=== PATIENT | male | born 1955 | race Caucasian/White ===

== ENCOUNTER 2016-04-29 11:11 | Inpatient (IN) | payer BC ==
[2016-04-29] MEDS ORDERED: NORMAL SALINE 1000 ML 1,000 ML IV ONE ×3 (11:32→15:02)
--- NOTE | 2016-04-29 11:32 | ER Document Report ---
[id number] 4d Medic Information source: Patient TRAVEL OUTSIDE OF THE [place] IN LAST 30 DAYS: No - HPI Patient complains to provider of: Cough, Short of breath Onset: Last week Duration: Worse/persistent Short of Breath: Moderate Cough: Productive Sputum color: Brown, Yellow Associated symptoms: None <HEBER CASILLAS - Last Filed: 05/05/16 14:13> - General Stated Complaint: BODY PAIN Notes: Patient is a 60-year-old male that presents to the emergency department today with complaints of shortness of breath with a cough of one week duration. EMS reports the patient's room air oxygen saturation was 78% on arrival. Patient states she has been having yellowish brown sputum with his cough. Patient does smoke 1 pack per day. Of note, at bedside the patient has a prescription bottle for 10 mg oxycodone #120 which was filled on 04/16/16 (approximately two weeks ago) which is empty. Patient is on pain management for chronic back pain. (HEBER CASILLAS) - Related Data Allergies/Adverse Reactions: No Known Allergies Allergy (Unverified 09/14/10 11:07) Home Medications: Current Home Medications Amlodipine Besylate/Benazepril [Amlodipine-Benazepril 5-40 mg] 1 cap PO DAILY [History] Ibuprofen [Motrin 800 mg Tablet] 800 mg PO TID 04/29/16 [History] Oxycodone HCl 10 mg PO Q6HP PRN 04/29/16 [History] Oxycodone HCl [Oxycontin] 20 mg PO Q12 04/29/16 [History] Pregabalin [Lyrica] 300 mg PO BID 04/29/16 [History] Past Medical History - General Information source: [facility] Records - Social History Smoking Status: Current Every Day Smoker Lives with: Family Family History: Reviewed & Not Pertinent Musculoskeltal Medical History: Reports Other - chronic back pain Surgical Hx: Negative <HEBER CASILLAS - Last Filed: 05/05/16 14:13> Review of Systems - Review of Systems Constitutional: No symptoms reported EENT: No symptoms reported Cardiovascular: No symptoms reported Respiratory: See HPI, Cough, Short of breath Gastrointestinal: No symptoms reported Genitourinary: No symptoms reported Male Genitourinary: No symptoms reported Musculoskeletal: No symptoms reported Skin: No symptoms reported Hematologic/Lymphatic: No symptoms reported Neurological/Psychological: No symptoms reported -: Yes All other systems reviewed and negative <HEBER CASILLAS - Last Filed: 05/05/16 14:13> Physical Exam - General General appearance: Alert In distress: Mild - respiratory distress - HEENT Head: Normocephalic, Atraumatic Eyes: Normal Extraocular movements intact: Yes - Respiratory Respiratory status: Respiratory distress - mild, Tachypnea Breath sounds: Rhonchi, Wheezing - Cardiovascular Rhythm: Regular Heart sounds: Normal auscultation Murmur: No - Abdominal Distension: Distended Tenderness: Nontender - Extremities General upper extremity: Normal inspection, Nontender. No: Edema General lower extremity: Normal inspection, Nontender. No: Edema - Neurological Neuro grossly intact: Yes Cognition: Normal Orientation: AAOx4 Speech: Normal Sensory: Normal - Psychological Associated symptoms: Normal affect, Normal mood - Skin Skin Temperature: Warm - quite warm to the touch Skin Moisture: Dry Skin Color: Normal <HEBER CASILLAS - Last Filed: 05/05/16 14:13> - Vital signs Vitals: Resp Pulse Ox 25 H 85 L 04/29/16 11:33 04/29/16 11:33 (MAIRA BOTELLO) Course - Laboratory Result Diagrams: 04/29/16 11:30 04/29/16 11:30 - Diagnostic Test Radiology reviewed: Image reviewed, Reports reviewed - Chest x-ray is read as pulmonary vascular congestion with developing left basilar infiltrate - EKG Interpretation by [place] EKG shows normal: Sinus rhythm, Intervals, QRS Complexes, ST-T Waves. abnormal : [place] Rate: Normal - 99 Rhythm: NSR [place]/QRS: Right axis deviation Voltage: Decreased voltage When compared to previous EKG there are: No significant change - Consults Dr. Mcclendon Time consulted: 13:50 Consulted provider: will come to ER <MAIRA BOTELLO - Last Filed: 04/29/16 14:04> - Laboratory Result Diagrams: 05/03/16 04:50 05/03/16 04:50 <HEBER CASILLAS - Last Filed: 05/05/16 14:13> - Re-evaluation Re-evalutation: 04/29/16 13:49 The patient's empty bottle of oxycodone filled under 2 weeks ago, along with his mental status, severe dehydration with renal failure and rhabdomyolysis all suggests the patient has been daily overdosing on his narcotics. 04/29/16 14:04 The patient was given 2 L of normal saline IV bolus. Further fluids are being held at this time until the BNP comes back. The radiologist read the chest x- ray is pulmonary vascular congestion, however this is unlikely given his labs suggesting severe dehydration. Fluids will be restarted when the BNP comes back if it does not suggest heart failure. The systolic blood pressure is about 105 at this time. (MAIRA BOTELLO) - Vital Signs Vital signs: Temp Pulse Resp BP Pulse Ox 97.8 F 77 16 123/65 90 L 05/03/16 11:32 05/03/16 11:32 05/03/16 11:32 05/03/16 11:32 05/03/16 11:32 (MAIRA BOTELLO) - Laboratory Laboratory results interpreted by me: 04/29/16 04/29/16 04/29/16 11:30 11:30 11:30 WBC 14.8 H Lymphocytes % 11.6 L Absolute Neutrophils 11.2 H Absolute Monocytes 1.9 H VBG pH VBG HCO3 Carbon Dioxide 21 L BUN 100 H Creatinine 3.71 H Est GFR ( Amer) 20 L Est GFR (Non-Af Amer) 17 L Glucose 177 H POC Glucose Lactic Acid 2.2 H AST 152 H ALT 79 H Alkaline Phosphatase 135 H Creatine Kinase 6460 H CK-MB (CK-2) 04/29/16 04/29/16 04/29/16 11:30 11:30 11:44 WBC Lymphocytes % Absolute Neutrophils Absolute Monocytes VBG pH 7.17 L* VBG HCO3 19.7 L Carbon Dioxide BUN Creatinine Est GFR ( Amer) Est GFR (Non-Af Amer) Glucose POC Glucose 178 H Lactic Acid AST ALT Alkaline Phosphatase Creatine Kinase CK-MB (CK-2) 33.30 H Critical Care Note - Critical Care Note Total time excluding time spent on procedures (mins): 35 <MAIRA BOTELLO - Last Filed: 04/29/16 14:04> Discharge - Discharge Admitting Provider: Hospitalist Unit Admitted: IMCU <MAIRA BOTELLO - Last Filed: 04/29/16 14:04> <HEBER CASILLAS - Last Filed: 05/05/16 14:13> - Discharge Clinical Impression: Dehydration, COPD with acute exacerbation, Prescription drug abuse Pneumonia Qualifiers: Pneumonia type: due to unspecified organism Laterality: left Lung location: lower lobe of lung Qualified Code(s): J18.1 - Lobar pneumonia, unspecified organism Acute renal failure Qualifiers: Acute renal failure type: unspecified Qualified Code(s): N17.9 - Acute kidney failure, unspecified Rhabdomyolysis Qualifiers: Rhabdomyolysis type: non-traumatic Qualified Code(s): M62.82 - Rhabdomyolysis Condition: Fair Disposition: ADMITTED INPATIENT Scribe Attestation: 04/29/16 13:54 I personally performed the services described in the documentation, reviewed and edited the documentation which was dictated to the scribe in my presence, and it accurately records my words and actions. (MAIRA BOTELLO) Scribe Documentation - Scribe acting as scribe for :: [place] <HEBER CASILLAS - Last Filed: 05/05/16 14:13>
[2016-04-29] MEDS ORDERED: IPRATROPIUM/ALBUTEROL 0.5-2.5 MG/3 ML AMPUL NEB ONE (11:33)
[2016-04-29 11:56] LABS: PROTHROMBIN TIME 14.3 SEC (11.4-15.4)
[2016-04-29 11:57] LABS: ABSOLUTE LYMPHOCYTES (AUTO) 1.7 10^3/uL (0.5-4.7); ABSOLUTE MONOCYTES (AUTO) 1.9 10^3/uL (0.1-1.4); ABSOLUTE NEUT (AUTO) 11.2 10^3/uL (1.7-8.2); BASOPHILS % (AUTO) 0.3 % (0-2); HEMATOCRIT 42.6 % (37.9-51.0); HEMOGLOBIN 14.3 g/dL (13.5-17.0); HGB HCT DIFFERENCE 0.3; LYMPHOCYTES % (AUTO) 11.6 % (13-45); MEAN CORPUSCULAR HEMOGLOBIN 30.8 pg (27.0-33.4); MEAN CORPUSCULAR HGB CONC 33.5 g/dL (32.0-36.0); MEAN CORPUSCULAR VOLUME 92 fl (80-97); MONOCYTES % (AUTO) 12.6 % (3-13); RED BLOOD COUNT 4.62 10^6/uL (4.35-5.55); RED CELL DISTRIBUTION WIDTH 13.6 % (11.5-14.0); SEGMENTED NEUTROPHILS % (AUTO) 75.5 % (42-78); WHITE BLOOD COUNT 14.8 10^3/uL (4.0-10.5)
[2016-04-29 12:01] LABS: VENOUS BLOOD BASE EXCESS -9.2 mmol/L; VENOUS BLOOD HCO3 19.7 mmol/L (20-32)
[2016-04-29 12:10] LABS: ALANINE AMINOTRANSFERASE 79 U/L (21-72); ALBUMIN 3.5 g/dL (3.5-5.0); ALKALINE PHOSPHATASE 135 U/L (38-126); ANION GAP 18 (5-19); ASPARTATE AMINO TRANSFERASE 152 U/L (17-59); BILIRUBIN,TOTAL 1.2 mg/dL (0.2-1.3); BLOOD UREA NITROGEN 100 mg/dL (7-20); CALCIUM 8.8 mg/dL (8.4-10.2); CARBON DIOXIDE 21 mmol/L (22-30); CHLORIDE 103 mmol/L (98-107); CREATININE RESULT 3.71 mg/dL (0.52-1.25); GLUCOSE 177 mg/dL (75-110); POTASSIUM 4.8 mmol/L (3.6-5.0); TOTAL PROTEIN 6.3 g/dL (6.3-8.2)
[2016-04-29 12:21] LABS: TROPONIN I < 0.012 ng/mL
[2016-04-29 12:23] LABS: VENOUS BLOOD PH 7.17 (7.30-7.42)
[2016-04-29] MEDS ORDERED: CEFTRIAXONE 1 GM/D5W RTU 50 ML IV ONE (12:26)
[2016-04-29 12:29] LABS: CREATINE KINASE 6460 U/L (55-170)
[2016-04-29] MEDS ORDERED: ALBUTEROL SULFATE 0.083% NEB 2.5 MG/3 ML AMPUL NEB ONE (13:26)
[2016-04-29] MEDS ORDERED: LORAZEPAM INJ 2 MG/1 ML VIAL IV PRN (14:46)
[2016-04-29] MEDS ORDERED: ALBUTEROL SULFATE 0.083% NEB 2.5 MG/3 ML AMPUL NEB PRN (15:07)
[2016-04-29] MEDS ORDERED: ACETAMINOPHEN 325 MG TABLET PO PRN (15:23)
[2016-04-29] MEDS: MORPHINE SULFATE 10 MG/ML INJ IV PRN (15:39)
--- NOTE | 2016-04-29 15:44 | PDOC H&P ---
History of Present Illness Patient complains of: Cough History of Present Illness: ANGELA ESCAMILLA is a 60 year old male presents to the emergency department couple day by his fiance with 4 days of cough, shortness of breath, confusion. Patient was found by EMS to have O2 sat of 70% on room air. In the emergency department he is noted to have bilateral pneumonia, COPD exacerbation, rhabdomyolysis, dehydration. He is a current smoker. Past Medical History Cardiac Medical History: Reports: Hyperlipidema Past Surgical History Past Surgical History: Reports: Orthopedic Surgery - Back/neck Social History Information Source: Patient Lives with: Spouse/Significant other Smoking Status: Current Every Day Smoker Frequency of Alcohol Use: Heavy Hx Recreational Drug Use: No Hx Prescription Drug Abuse: No - Advance Directive Resuscitation Status: Full Code Family History Family History: DM Parental Family History Reviewed: Yes Children Family History Reviewed: Yes Sibling(s) Family History Reviewed.: Yes Medication/Allergy Home Medications: Amlodipine Besylate/Benazepril [Amlodipine-Benazepril 5-40 mg] 1 cap PO DAILY Ibuprofen [Motrin 800 mg Tablet] 800 mg PO TID 04/29/16 Oxycodone HCl 10 mg PO Q6HP PRN 04/29/16 Oxycodone HCl [Oxycontin] 20 mg PO Q12 04/29/16 Pregabalin [Lyrica] 300 mg PO BID 04/29/16 Allergies/Adverse Reactions: No Known Allergies Allergy (Unverified 09/14/10 11:07) Review of Systems Constitutional: ABSENT: chills, fever(s), headache(s), weight gain, weight loss Eyes: ABSENT: visual disturbances Ears: ABSENT: hearing changes Cardiovascular: ABSENT: chest pain, dyspnea on exertion, edema, orthropnea, palpitations Respiratory: PRESENT: cough, dyspnea, sputum. ABSENT: hemoptysis Gastrointestinal: ABSENT: abdominal pain, constipation, diarrhea, hematemesis, hematochezia, nausea, vomiting Genitourinary: ABSENT: dysuria, hematuria Musculoskeletal: ABSENT: joint swelling Integumentary: ABSENT: rash, wounds Neurological: PRESENT: confusion. ABSENT: abnormal gait, abnormal speech, dizziness, focal weakness, syncope Psychiatric: ABSENT: anxiety, depression, homidical ideation, suicidal ideation Endocrine: ABSENT: cold intolerance, heat intolerance, polydipsia, polyuria Hematologic/Lymphatic: ABSENT: easy bleeding, easy bruising Physical Exam Vital Signs: Temp Pulse Resp BP Pulse Ox 98.6 F 20 108/53 L 91 L 04/29/16 14:13 04/29/16 14:00 04/29/16 14:00 04/29/16 14:00 PHYSICAL EXAM: GENERAL: Appears well, no acute distress, slightly agitated HEENT: Normocephalic, no scleral icterus, conjunctiva clear, EOEM intact, PERRLA , moist mucous membranes NECK: trachea midline, no thyromegally RESPIRATORY: Bilateral rhonchi and wheezes CARDIAC: Regular rate and rhythm, no murmur/pilar/rub ABDOMEN: Soft, no distension, no tenderness, no guarding, normal bowel sounds, negative Pereira sign RECTAL: deferred : deferred EXTREMITIES: No edema, cyanosis, clubbing MUSCULOSKELETAL: No joint swelling or deformity VASCULAR: normal peripheral pulses NEUROLOGIC: Alert, oriented to person only, normal speech, cranial nerves grossly intact, 5/5 strength in all extremities, tactile sensation intact in all extremities SKIN: No rash, no wounds, no worrisome skin lesions PSYCHIATRIC: Unusual affect Results Laboratory Results: 04/29/16 11:30 04/29/16 11:30 04/29/16 04/29/16 04/29/16 11:30 11:30 11:30 WBC 14.8 H RBC 4.62 Hgb 14.3 Hct 42.6 MCV 92 MCH 30.8 MCHC 33.5 RDW 13.6 Plt Count 236 Seg Neutrophils % 75.5 Lymphocytes % 11.6 L Monocytes % 12.6 Eosinophils % 0.0 Basophils % 0.3 Absolute Neutrophils 11.2 H Absolute Lymphocytes 1.7 Absolute Monocytes 1.9 H Absolute Eosinophils 0.0 Absolute Basophils 0.0 VBG pH VBG pCO2 VBG HCO3 VBG Base Excess Sodium 142.0 Potassium 4.8 Chloride 103 Carbon Dioxide 21 L Anion Gap 18 BUN 100 H Creatinine 3.71 H Est GFR ( Amer) 20 L Est GFR (Non-Af Amer) 17 L Glucose 177 H Lactic Acid 2.2 H Calcium 8.8 Total Bilirubin 1.2 AST 152 H ALT 79 H Alkaline Phosphatase 135 H Total Protein 6.3 Albumin 3.5 04/29/16 11:30 WBC RBC Hgb Hct MCV MCH MCHC RDW Plt Count Seg Neutrophils % Lymphocytes % Monocytes % Eosinophils % Basophils % Absolute Neutrophils Absolute Lymphocytes Absolute Monocytes Absolute Eosinophils Absolute Basophils VBG pH 7.17 L* VBG pCO2 55.0 VBG HCO3 19.7 L VBG Base Excess -9.2 Sodium Potassium Chloride Carbon Dioxide Anion Gap BUN Creatinine Est GFR ( Amer) Est GFR (Non-Af Amer) Glucose Lactic Acid Calcium Total Bilirubin AST ALT Alkaline Phosphatase Total Protein Albumin 04/29/16 04/29/16 04/29/16 11:30 11:30 11:30 Creatine Kinase 6460 H CK-MB (CK-2) 33.30 H Troponin I < 0.012 NT-Pro-B Natriuret Pep 232 Impressions: Chest X-Ray 04/29/16 12:02 IMPRESSION: Pulmonary vascular congestion Question early or developing infiltrate left lower lobe, edema versus pneumonia Assessment & Plan - Diagnosis (1) Acute hypoxemic respiratory failure Is this a current diagnosis for this admission?: YesPlan: Oxygen supplementation as needed maintain O2 sat greater than 93%. (2) Sepsis Is this a current diagnosis for this admission?: YesPlan: Secondary to pneumonia. (3) Pneumonia Qualifiers: Pneumonia type: due to unspecified organism Laterality: left Lung location: lower lobe of lung Qualified Code(s): J18.1 - Lobar pneumonia, unspecified organism Is this a current diagnosis for this admission?: YesPlan: Likely bacterial. Start IV Rocephin and IV azithromycin pending blood and sputum culture. (4) Chronic pain Is this a current diagnosis for this admission?: YesPlan: Secondary to multiple cervical and lumbar spine surgeries. Chronic opiate dependent. Order when necessary IV morphine for now. (5) Acute renal failure Qualifiers: Acute renal failure type: unspecified Qualified Code(s): N17.9 - Acute kidney failure, unspecified Is this a current diagnosis for this admission?: YesPlan: Secondary to sepsis and rhabdomyolysis. Aggressive IV fluids. Monitor kidney function and CPK level. (6) COPD with acute exacerbation Is this a current diagnosis for this admission?: YesPlan: IV Solu-Medrol. Scheduled and when necessary albuterol. (7) Dehydration Is this a current diagnosis for this admission?: Yes (8) Rhabdomyolysis Qualifiers: Rhabdomyolysis type: non-traumatic Qualified Code(s): M62.82 - Rhabdomyolysis Is this a current diagnosis for this admission?: YesPlan: IV fluids. Monitor labs. - Time Time Spent: Greater than 70 Minutes
[2016-04-29] MEDS: NORMAL SALINE 1000 ML 1,000 ML IV PRN ×2 (15:46→21:17)
[2016-04-29] MEDS ORDERED: METHYLPREDNISOLONE INJ 40 MG/1 ML SDV IV ONE (16:15)
[2016-04-29 16:45] LABS: APPEARANCE,URINE SLIGHTLY-CLOUDY; BILIRUBIN,URINE NEGATIVE (NEGATIVE); GLUCOSE, URINE NEGATIVE (NEGATIVE); KETONES,URINE NEGATIVE (NEGATIVE); LEUKOCYTE ESTERASE,URINE NEGATIVE (NEGATIVE); NITRITE,URINE NEGATIVE (NEGATIVE); PROTEIN,URINE NEGATIVE (NEGATIVE); URINE SPECIFIC GRAVITY 1.013
--- NOTE | 2016-04-29 17:00 | EKG REPORT ---
SEVERITY:- OTHERWISE NORMAL ECG - SINUS RHYTHM RIGHT AXIS DEVIATION LOW VOLTAGE IN FRONTAL LEADS : Confirmed by: Scarlet Moralez MD 29-Apr-2016 16:58:07
[2016-04-29] MEDS: GUAIFENESIN 600 MG TABLET.SA PO SCH (17:29)
[2016-04-29] MEDS ORDERED: LEVOFLOXACIN 750 MG/D5W RTU 750 MG/150 ML RTUPB IV SCH ×2 (18:00→22:00)
[2016-04-29] MEDS: ALBUTEROL SULFATE 0.083% NEB 2.5 MG/3 ML AMPUL NEB SCH (20:48)
[2016-04-29] MEDS: HEPARIN SOD (PORCINE) 5,000 UNIT/ML 1 ML SYRINGE SUBCUT SCH (21:22)
[2016-04-29] MEDS: FAMOTIDINE INJ/PF 20 MG/2 ML SDV IV SCH (21:25)
[2016-04-29] MEDS: METHYLPREDNISOLONE INJ 40 MG/1 ML SDV IV SCH (21:26)
[2016-04-29] MEDS ORDERED: FAMOTIDINE INJ/PF 20 MG/2 ML SDV IV SCH (22:00)
[2016-04-30] MEDS: GUAIFENESIN 600 MG TABLET.SA PO SCH ×2 (05:20→17:16)
[2016-04-30] MEDS: METHYLPREDNISOLONE INJ 40 MG/1 ML SDV IV SCH ×3 (05:21→21:50)
[2016-04-30] MEDS: HEPARIN SOD (PORCINE) 5,000 UNIT/ML 1 ML SYRINGE SUBCUT SCH ×3 (05:21→21:51)
[2016-04-30 07:46] LABS: ANION GAP 12 (5-19); CALCIUM 8.5 mg/dL (8.4-10.2); CARBON DIOXIDE 19 mmol/L (22-30); CHLORIDE 116 mmol/L (98-107); CREATININE RESULT 1.17 mg/dL (0.52-1.25); GLUCOSE 139 mg/dL (75-110); POTASSIUM 4.8 mmol/L (3.6-5.0); SODIUM 146.8 mmol/L (137-145)
[2016-04-30 08:05] LABS: CREATINE KINASE 3134 U/L (55-170)
[2016-04-30 08:10] LABS: HEMATOCRIT 38.2 % (37.9-51.0); HEMOGLOBIN 12.5 g/dL (13.5-17.0); HGB HCT DIFFERENCE -0.7; MEAN CORPUSCULAR HEMOGLOBIN 30.4 pg (27.0-33.4); MEAN CORPUSCULAR HGB CONC 32.6 g/dL (32.0-36.0); MEAN CORPUSCULAR VOLUME 93 fl (80-97); RED BLOOD COUNT 4.09 10^6/uL (4.35-5.55); RED CELL DISTRIBUTION WIDTH 13.5 % (11.5-14.0); WHITE BLOOD COUNT 12.1 10^3/uL (4.0-10.5)
[2016-04-30] MEDS: ALBUTEROL SULFATE 0.083% NEB 2.5 MG/3 ML AMPUL NEB SCH ×3 (08:15→20:01)
[2016-04-30 08:23] LABS: BLOOD UREA NITROGEN 60 mg/dL (7-20)
[2016-04-30] MEDS ORDERED: ONDANSETRON HCL INJ/PF 4 MG/2 ML SDV IV PRN (08:44)
[2016-04-30] MEDS: FAMOTIDINE INJ/PF 20 MG/2 ML SDV IV SCH (09:12)
[2016-04-30] MEDS: CEFTRIAXONE 1 GM/D5W RTU 50 ML IV SCH (09:12)
[2016-04-30] MEDS ORDERED: NORMAL SALINE 1000 ML 1,000 ML IV PRN (10:42)
[2016-04-30] MEDS: MORPHINE SULFATE 10 MG/ML INJ IV PRN (11:02)
--- NOTE | 2016-04-30 11:02 | PDOC PROGRESS REPORT ---
Subjective Progress Note for:: 04/30/16 Subjective:: Patient is much more alert and appropriate today. He is having severe chronic back pain since his opiates were held on admission secondary to encephalopathy. He continues to have cough and shortness of breath. Patient denies fever, chills , headache, new focal weakness, chest pain, abdominal pain, nausea, vomiting, diarrhea, constipation. Physical Exam Vital Signs: Temp Pulse Resp BP Pulse Ox 97.3 F 82 18 137/84 H 92 04/30/16 07:24 04/30/16 07:24 04/30/16 07:24 04/30/16 07:24 04/30/16 07:24 Intake & Output 04/29/16 04/30/16 05/01/16 06:59 06:59 06:59 Intake Total 3500 Output Total 2500 Balance 1000 Weight 81.647 kg GENERAL: No acute distress HEENT: Conjunctiva clear, nonicteric, moist mucous membranes, no JVD, midline trachea RESPIRATORY: Bilateral rhonchi/wheezes CARDIAC: Regular rate and rhythm, no murmurs/gallops/rubs ABDOMEN: Soft, nondistended, nontender, positive bowel sounds, no rebound, no guarding EXTREMETIES: No edema, cyanosis, clubbing NEUROLOGIC: Alert, oriented to person/place/time, CN's grossly intact, no focal deficits SKIN: No rash, wounds PSYCH: Normal mood, normal affect Results Laboratory Results: 04/30/16 04:05 04/30/16 04:05 04/29/16 04/29/16 04/30/16 16:00 16:15 04:05 WBC 12.1 H RBC 4.09 L Hgb 12.5 L Hct 38.2 MCV 93 MCH 30.4 MCHC 32.6 RDW 13.5 Plt Count 202 Sodium Potassium Chloride Carbon Dioxide Anion Gap BUN Creatinine Est GFR ( Amer) Est GFR (Non-Af Amer) Glucose Lactic Acid 1.2 Calcium Urine Color YELLOW Urine Appearance SLIGHTLY-CLOUDY Urine pH 5.0 Ur Specific [place] 1.013 Urine Protein NEGATIVE Urine Glucose (UA) NEGATIVE Urine Ketones NEGATIVE Urine Blood LARGE H Urine Nitrite NEGATIVE Ur Leukocyte Esterase NEGATIVE Urine WBC (Auto) 2 Urine RBC (Auto) 0 04/30/16 04:05 WBC RBC Hgb Hct MCV MCH MCHC RDW Plt Count Sodium 146.8 H Potassium 4.8 Chloride 116 H Carbon Dioxide 19 L Anion Gap 12 BUN 60 H D Creatinine 1.17 Est GFR ( Amer) > 60 Est GFR (Non-Af Amer) > 60 Glucose 139 H Lactic Acid Calcium 8.5 Urine Color Urine Appearance Urine pH Ur Specific [place] Urine Protein Urine Glucose (UA) Urine Ketones Urine Blood Urine Nitrite Ur Leukocyte Esterase Urine WBC (Auto) Urine RBC (Auto) 04/30/16 04:05 Creatine Kinase 3134 H Impressions: Chest X-Ray 04/29/16 12:02 IMPRESSION: Pulmonary vascular congestion Question early or developing infiltrate left lower lobe, edema versus pneumonia Assessment & Plan - Diagnosis (1) Acute hypoxemic respiratory failure Is this a current diagnosis for this admission?: YesPlan: Continue oxygen supplementation. Continue to address COPD and pneumonia. (2) Sepsis Is this a current diagnosis for this admission?: YesPlan: Secondary to pneumonia. White blood count improving. Blood pressure stable. (3) Pneumonia Qualifiers: Pneumonia type: due to unspecified organism Laterality: left Lung location: lower lobe of lung Qualified Code(s): J18.1 - Lobar pneumonia, unspecified organism Is this a current diagnosis for this admission?: YesPlan: Likely bacterial. Continue IV Rocephin and IV Levaquin pending blood and sputum culture. (4) Chronic pain Is this a current diagnosis for this admission?: YesPlan: Resume OxyContin 20 mg twice daily. When necessary IV morphine. (5) Acute renal failure Qualifiers: Acute renal failure type: unspecified Qualified Code(s): N17.9 - Acute kidney failure, unspecified Is this a current diagnosis for this admission?: YesPlan: Resolved. Decrease IV fluid rate. (6) COPD with acute exacerbation Is this a current diagnosis for this admission?: YesPlan: Continue IV Solu-Medrol. Continue albuterol. (7) Dehydration Is this a current diagnosis for this admission?: Yes (8) Rhabdomyolysis Qualifiers: Rhabdomyolysis type: non-traumatic Qualified Code(s): M62.82 - Rhabdomyolysis Is this a current diagnosis for this admission?: YesPlan: Much improved. Kidney function now normal. Decrease IV fluid rate. (9) Tobacco abuse Is this a current diagnosis for this admission?: Yes (10) Alcohol abuse Is this a current diagnosis for this admission?: YesPlan: Monitor for signs withdrawal. (11) Hypernatremia Is this a current diagnosis for this admission?: YesPlan: Change IV fluids to D5 half-normal saline. - Time Time Spent with patient: 35 or more minutes
[2016-04-30] MEDS: DEXTROSE 5%-1/2 NORMAL SALINE 1,000 ML IV PRN (11:03)
[2016-04-30] MEDS ORDERED: OXYCODONE HCL SR 10 MG TABLET PO ONE (11:30)
[2016-04-30] MEDS ORDERED: INFLUENZA ADLT QUAD (36MOS+) 2016-17 VAC 0.5 ML SYR IM PRN (13:17)
--- NOTE | 2016-04-30 15:07 | Physician Advisory Note ---
Physician Advisor ProgressNote .: Pursuant to the plan for [facility], I have reviewed the medical record for this patient. Physician Advisor Statement: Possible documentation opportunities if attending agrees: 1. "PNA LLL, suspect due to " [gram negative? H.flu? - Need to specify the type of bacteria, not just state "bacterial"....] 2. "FREEMAN, suspect due to " [ATN, Acute cortical necrosis, medullary necrosis, post-traumatic, ...] 3. R.e. "Ac Hypoxemic Resp Failure" dx, please document "Pt had respiratory distress & tachypnea noted in the ED". [ED dr/nurse documentation needs to be re-iterated by attending for coders to accept it. You've already nicely documented the hypoxemia. We need both degree of hypoxemia & presence of resp difficulty/distress/accessory muscle use/ etc info documented to support this dx, & this pt did have both.] 4. "hypernatremia, likely due to intravascular volume depletion" 5. "unintended overdose of oxycodone causing " [oversedation? PNA? ...] R.e. 'sepsis due to PNA' dx, pt had leukocytosis of 14.8, tachypnea of 25, tachycardia of 101, confusion/AMS (tho' total GCS was still 14), lactate of 2.2 , FREEMAN w/Cr 3.71, Ac Metabolic Acidosis w/bicarb 21. Therefore, she met Sepsis- 2 criteria as well as Sepsis-3/qSOFA criteria for dx of sepsis. She also had relative hypotension, but MAP didn't go below 70. Thanks for your help with documentation accuracy/specificity improvement! Vicki Galeana MD [facility] Physician Advisor, Fellow of Hospital Medicine
[2016-04-30] MEDS: PREGABALIN 100 MG CAPSULE PO SCH (17:16)
[2016-04-30] MEDS: OXYCODONE HCL SR 10 MG TABLET PO SCH (21:50)
[2016-04-30] MEDS: FAMOTIDINE 20 MG TABLET PO SCH (21:51)
[2016-04-30] MEDS ORDERED: LEVOFLOXACIN 750 MG/D5W RTU 750 MG/150 ML RTUPB IV SCH (22:00)
[2016-04-30] MEDS ORDERED: OXYCODONE HCL SR 10 MG TABLET PO SCH (22:00)
[2016-04-30] MEDS ORDERED: OXYCODONE HCL 10 MG PO SCH (22:00)
[2016-05-01] MEDS: DEXTROSE 5%-1/2 NORMAL SALINE 1,000 ML IV PRN (02:52)
[2016-05-01] MEDS: METHYLPREDNISOLONE INJ 40 MG/1 ML SDV IV SCH (05:07)
[2016-05-01] MEDS: HEPARIN SOD (PORCINE) 5,000 UNIT/ML 1 ML SYRINGE SUBCUT SCH ×3 (05:07→21:45)
[2016-05-01] MEDS: GUAIFENESIN 600 MG TABLET.SA PO SCH ×2 (05:08→17:59)
[2016-05-01] MEDS: PREGABALIN 100 MG CAPSULE PO SCH ×2 (05:08→18:00)
[2016-05-01 06:04] LABS: HEMATOCRIT 38.3 % (37.9-51.0); HEMOGLOBIN 12.8 g/dL (13.5-17.0); HGB HCT DIFFERENCE 0.1; MEAN CORPUSCULAR HEMOGLOBIN 30.8 pg (27.0-33.4); MEAN CORPUSCULAR HGB CONC 33.3 g/dL (32.0-36.0); MEAN CORPUSCULAR VOLUME 93 fl (80-97); RED BLOOD COUNT 4.14 10^6/uL (4.35-5.55); RED CELL DISTRIBUTION WIDTH 13.7 % (11.5-14.0); WHITE BLOOD COUNT 12.1 10^3/uL (4.0-10.5)
[2016-05-01 06:19] LABS: ANION GAP 9 (5-19); BLOOD UREA NITROGEN 44 mg/dL (7-20); CALCIUM 9.2 mg/dL (8.4-10.2); CARBON DIOXIDE 21 mmol/L (22-30); CHLORIDE 115 mmol/L (98-107); GLUCOSE 144 mg/dL (75-110); POTASSIUM 4.9 mmol/L (3.6-5.0); SODIUM 145.2 mmol/L (137-145)
[2016-05-01] MEDS: ALBUTEROL SULFATE 0.083% NEB 2.5 MG/3 ML AMPUL NEB SCH ×3 (08:14→19:40)
[2016-05-01] MEDS: OXYCODONE HCL SR 10 MG TABLET PO SCH ×2 (10:15→21:45)
[2016-05-01] MEDS: FAMOTIDINE 20 MG TABLET PO SCH ×2 (10:15→21:46)
[2016-05-01] MEDS: CEFTRIAXONE 1 GM/D5W RTU 50 ML IV SCH (10:16)
--- NOTE | 2016-05-01 14:14 | PDOC PROGRESS REPORT ---
Subjective Progress Note for:: 05/01/16 Subjective:: Patient is much more alert and appropriate today. He feels significantly better with regard to his overall weakness and shortness of breath. Patient denies fever, chills, headache, new focal weakness, chest pain, abdominal pain, nausea, vomiting, diarrhea, constipation. Physical Exam Vital Signs: Temp Pulse Resp BP Pulse Ox 98.2 F 67 14 123/65 98 05/01/16 11:13 05/01/16 11:13 05/01/16 11:13 05/01/16 11:13 05/01/16 11:13 Intake & Output 04/30/16 05/01/16 05/02/16 06:59 06:59 06:59 Intake Total 3500 2360 240 Output Total 2500 2353 300 Balance 1000 7 -60 Weight 81.647 kg 81 kg GENERAL: No acute distress HEENT: Conjunctiva clear, nonicteric, moist mucous membranes, no JVD, midline trachea RESPIRATORY: Bilateral rhonchi/wheezes CARDIAC: Regular rate and rhythm, no murmurs/gallops/rubs ABDOMEN: Soft, nondistended, nontender, positive bowel sounds, no rebound, no guarding EXTREMETIES: No edema, cyanosis, clubbing NEUROLOGIC: Alert, oriented to person/place/time, CN's grossly intact, no focal deficits SKIN: No rash, wounds PSYCH: Normal mood, normal affect Results Laboratory Results: 05/01/16 05:16 05/01/16 05:16 05/01/16 05/01/16 05:16 05:16 WBC 12.1 H RBC 4.14 L Hgb 12.8 L Hct 38.3 MCV 93 MCH 30.8 MCHC 33.3 RDW 13.7 Plt Count 198 Sodium 145.2 H Potassium 4.9 Chloride 115 H Carbon Dioxide 21 L Anion Gap 9 BUN 44 H Creatinine 0.90 Est GFR ( Amer) > 60 Est GFR (Non-Af Amer) > 60 Glucose 144 H Calcium 9.2 04/29/16 16:15 Clean Catch Midstream Urine Culture - Final NO GROWTH 2 DAYS 04/30/16 04:05 Creatine Kinase 3134 H Impressions: Chest X-Ray 04/29/16 12:02 IMPRESSION: Pulmonary vascular congestion Question early or developing infiltrate left lower lobe, edema versus pneumonia Assessment & Plan - Diagnosis (1) Acute hypoxemic respiratory failure Is this a current diagnosis for this admission?: YesPlan: Continue oxygen supplementation. Continue to address COPD and pneumonia. (2) Sepsis Is this a current diagnosis for this admission?: YesPlan: Secondary to pneumonia. White blood count improving. Blood pressure stable. (3) Pneumonia Qualifiers: Pneumonia type: due to unspecified organism Laterality: left Lung location: lower lobe of lung Qualified Code(s): J18.1 - Lobar pneumonia, unspecified organism Is this a current diagnosis for this admission?: YesPlan: Sputum culture growing Haemophilus influenza. Discontinue IV Rocephin and IV Levaquin. Start oral Levaquin. (4) Chronic pain Is this a current diagnosis for this admission?: YesPlan: Chronic opiate dependence. Continue OxyContin 20 mg twice daily. When necessary IV morphine. (5) Acute renal failure Qualifiers: Acute renal failure type: unspecified Qualified Code(s): N17.9 - Acute kidney failure, unspecified Is this a current diagnosis for this admission?: YesPlan: Resolved. Discontinue IV fluids. (6) COPD with acute exacerbation Is this a current diagnosis for this admission?: YesPlan: Discontinue IV Solu-Medrol. Start prednisone 40 mg daily. Continue albuterol. (7) Dehydration Is this a current diagnosis for this admission?: Yes (8) Rhabdomyolysis Qualifiers: Rhabdomyolysis type: non-traumatic Qualified Code(s): M62.82 - Rhabdomyolysis Is this a current diagnosis for this admission?: YesPlan: Much improved. Kidney function now normal. (9) Tobacco abuse Is this a current diagnosis for this admission?: Yes (10) Alcohol abuse Is this a current diagnosis for this admission?: YesPlan: No signs of withdrawal. (11) Hypernatremia Is this a current diagnosis for this admission?: Yes - Time Time Spent with patient: 35 or more minutes
[2016-05-01] MEDS: MORPHINE SULFATE 10 MG/ML INJ IV PRN (19:47)
[2016-05-01] MEDS: LEVOFLOXACIN 750 MG TABLET PO SCH (21:46)
[2016-05-02] MEDS: GUAIFENESIN 600 MG TABLET.SA PO SCH ×2 (05:25→17:36)
[2016-05-02] MEDS: PREGABALIN 100 MG CAPSULE PO SCH ×2 (05:25→17:36)
[2016-05-02] MEDS: HEPARIN SOD (PORCINE) 5,000 UNIT/ML 1 ML SYRINGE SUBCUT SCH ×3 (05:27→21:48)
[2016-05-02 05:33] LABS: HEMATOCRIT 42.2 % (37.9-51.0); HEMOGLOBIN 13.1 g/dL (13.5-17.0); HGB HCT DIFFERENCE -2.9; MEAN CORPUSCULAR HEMOGLOBIN 29.2 pg (27.0-33.4); MEAN CORPUSCULAR VOLUME 94 fl (80-97); RED BLOOD COUNT 4.47 10^6/uL (4.35-5.55); RED CELL DISTRIBUTION WIDTH 13.5 % (11.5-14.0); WHITE BLOOD COUNT 18.1 10^3/uL (4.0-10.5)
[2016-05-02] MEDS: MORPHINE SULFATE 10 MG/ML INJ IV PRN ×4 (05:40→20:11)
[2016-05-02 05:56] LABS: ANION GAP 8 (5-19); BLOOD UREA NITROGEN 37 mg/dL (7-20); CARBON DIOXIDE 27 mmol/L (22-30); CHLORIDE 110 mmol/L (98-107); CREATININE RESULT 0.93 mg/dL (0.52-1.25); GLUCOSE 85 mg/dL (75-110); POTASSIUM 4.3 mmol/L (3.6-5.0)
[2016-05-02] MEDS: ALBUTEROL SULFATE 0.083% NEB 2.5 MG/3 ML AMPUL NEB SCH ×3 (08:12→19:25)
[2016-05-02] MEDS: PREDNISONE 20 MG TABLET PO SCH (09:01)
[2016-05-02] MEDS: FAMOTIDINE 20 MG TABLET PO SCH ×2 (09:01→21:48)
[2016-05-02] MEDS: OXYCODONE HCL SR 10 MG TABLET PO SCH ×2 (09:01→21:48)
[2016-05-02] MEDS ORDERED: PREDNISONE 20 MG TABLET PO SCH (10:00)
--- NOTE | 2016-05-02 17:28 | PDOC PROGRESS REPORT ---
Subjective Progress Note for:: 05/02/16 Subjective:: Patient is feeling much better from a respiratory standpoint. He still feels generally weak. Patient denies fever, chills, headache, new focal weakness, chest pain, abdominal pain, nausea, vomiting, diarrhea, constipation. Physical Exam Vital Signs: Temp Pulse Resp BP Pulse Ox 97.9 F 82 16 119/67 98 05/02/16 12:04 05/02/16 14:04 05/02/16 14:04 05/02/16 12:04 05/02/16 14:04 Intake & Output 05/01/16 05/02/16 05/03/16 06:59 06:59 06:59 Intake Total 2360 2083 591 Output Total 2353 1100 Balance 7 983 591 Weight 81 kg 76.6 kg GENERAL: No acute distress HEENT: Conjunctiva clear, nonicteric, moist mucous membranes, no JVD, midline trachea RESPIRATORY: Bilateral wheezes improved from yesterday's exam, good air excursion CARDIAC: Regular rate and rhythm, no murmurs/gallops/rubs ABDOMEN: Soft, nondistended, nontender, positive bowel sounds, no rebound, no guarding EXTREMETIES: No edema, cyanosis, clubbing NEUROLOGIC: Alert, oriented to person/place/time, CN's grossly intact, no focal deficits SKIN: No rash, wounds PSYCH: Normal mood, normal affect Results Laboratory Results: 05/02/16 04:48 05/02/16 04:48 05/02/16 05/02/16 04:48 04:48 WBC 18.1 H RBC 4.47 Hgb 13.1 L Hct 42.2 MCV 94 MCH 29.2 MCHC 31.0 L RDW 13.5 Plt Count 235 Sodium 145.0 Potassium 4.3 Chloride 110 H Carbon Dioxide 27 Anion Gap 8 BUN 37 H Creatinine 0.93 Est GFR ( Amer) > 60 Est GFR (Non-Af Amer) > 60 Glucose 85 Calcium 9.0 04/30/16 04:05 Creatine Kinase 3134 H Impressions: Chest X-Ray 04/29/16 12:02 IMPRESSION: Pulmonary vascular congestion Question early or developing infiltrate left lower lobe, edema versus pneumonia Assessment & Plan - Diagnosis (1) Acute hypoxemic respiratory failure Is this a current diagnosis for this admission?: YesPlan: Continue oxygen supplementation. Continue to address COPD and pneumonia. (2) Sepsis Is this a current diagnosis for this admission?: YesPlan: Secondary to pneumonia. Afebrile. Blood pressure stable. Leukocytosis likely steroid effect. (3) Pneumonia Qualifiers: Pneumonia type: due to unspecified organism Laterality: left Lung location: lower lobe of lung Qualified Code(s): J18.1 - Lobar pneumonia, unspecified organism Is this a current diagnosis for this admission?: YesPlan: Sputum culture growing Haemophilus influenza. Continue oral Levaquin. (4) Chronic pain Is this a current diagnosis for this admission?: YesPlan: Chronic opiate dependence. Continue OxyContin 20 mg twice daily. When necessary IV morphine. (5) Acute renal failure Qualifiers: Acute renal failure type: unspecified Qualified Code(s): N17.9 - Acute kidney failure, unspecified Is this a current diagnosis for this admission?: YesPlan: Resolved. (6) COPD with acute exacerbation Is this a current diagnosis for this admission?: YesPlan: Continue prednisone 40 mg daily. Continue albuterol. (7) Dehydration Is this a current diagnosis for this admission?: Yes (8) Rhabdomyolysis Qualifiers: Rhabdomyolysis type: non-traumatic Qualified Code(s): M62.82 - Rhabdomyolysis Is this a current diagnosis for this admission?: YesPlan: Much improved. Kidney function now normal. (9) Tobacco abuse Is this a current diagnosis for this admission?: Yes (10) Alcohol abuse Is this a current diagnosis for this admission?: YesPlan: No signs of withdrawal. (11) Hypernatremia Is this a current diagnosis for this admission?: YesPlan: Resolved. - Time Time Spent with patient: 25-34 minutes
[2016-05-02] MEDS: LEVOFLOXACIN 750 MG TABLET PO SCH (21:48)
[2016-05-03] MEDS: MORPHINE SULFATE 10 MG/ML INJ IV PRN ×2 (01:44→06:39)
[2016-05-03 05:51] LABS: HEMATOCRIT 40.6 % (37.9-51.0); HEMOGLOBIN 12.9 g/dL (13.5-17.0); HGB HCT DIFFERENCE -1.9; MEAN CORPUSCULAR HEMOGLOBIN 29.4 pg (27.0-33.4); MEAN CORPUSCULAR HGB CONC 31.7 g/dL (32.0-36.0); MEAN CORPUSCULAR VOLUME 93 fl (80-97); RED BLOOD COUNT 4.38 10^6/uL (4.35-5.55); RED CELL DISTRIBUTION WIDTH 13.5 % (11.5-14.0); WHITE BLOOD COUNT 20.1 10^3/uL (4.0-10.5)
[2016-05-03 06:05] LABS: ANION GAP 10 (5-19); BLOOD UREA NITROGEN 25 mg/dL (7-20); CALCIUM 8.8 mg/dL (8.4-10.2); CARBON DIOXIDE 25 mmol/L (22-30); CHLORIDE 107 mmol/L (98-107); CREATINE KINASE 326 U/L (55-170); CREATININE RESULT 0.75 mg/dL (0.52-1.25); GLUCOSE 94 mg/dL (75-110); POTASSIUM 4.1 mmol/L (3.6-5.0); SODIUM 142.4 mmol/L (137-145)
[2016-05-03] MEDS: GUAIFENESIN 600 MG TABLET.SA PO SCH (06:39)
[2016-05-03] MEDS: PREGABALIN 100 MG CAPSULE PO SCH (06:39)
[2016-05-03] MEDS: HEPARIN SOD (PORCINE) 5,000 UNIT/ML 1 ML SYRINGE SUBCUT SCH (06:40)
[2016-05-03 06:46] LABS: BAND NEUTROPHILS % (MANUAL) 2 % (3-5); BASOPHILS % (MANUAL) 0 % (0-2); EOSINOPHILS % (MANUAL) 0 % (0-6); LYMPHOCYTES % (MANUAL) 18 % (13-45); TOTAL CELLS COUNTED 100
[2016-05-03 06:47] LABS: RBC MORPHOLOGY COMMENT NORMO-CYTIC/CHROMIC; TOXIC GRANULATION 1+
[2016-05-03] MEDS: ALBUTEROL SULFATE 0.083% NEB 2.5 MG/3 ML AMPUL NEB SCH (08:28)
[2016-05-03] MEDS: FAMOTIDINE 20 MG TABLET PO SCH (09:14)
[2016-05-03] MEDS: PREDNISONE 20 MG TABLET PO SCH (09:14)
[2016-05-03] MEDS: OXYCODONE HCL SR 10 MG TABLET PO SCH (09:14)
--- NOTE | 2016-05-03 10:53 | PDOC DISCHARGE SUMMARY ---
General - Admit/Disc Date/PCP Admission Date/Primary Care Provider: 04/29/16 15:07 Discharge Date: 05/03/16 - Discharge Diagnosis (1) Acute hypoxemic respiratory failure Is this a current diagnosis for this admission?: Yes (2) Sepsis Is this a current diagnosis for this admission?: Yes (3) Pneumonia Is this a current diagnosis for this admission?: Yes (4) Chronic pain Is this a current diagnosis for this admission?: Yes (5) Acute renal failure Is this a current diagnosis for this admission?: Yes (6) COPD with acute exacerbation Is this a current diagnosis for this admission?: Yes (7) Dehydration Is this a current diagnosis for this admission?: Yes (8) Rhabdomyolysis Is this a current diagnosis for this admission?: Yes (9) Tobacco abuse Is this a current diagnosis for this admission?: Yes (10) Alcohol abuse Is this a current diagnosis for this admission?: Yes (11) Hypernatremia Is this a current diagnosis for this admission?: Yes - Additional Information Resuscitation Status: Full Code Discharge Diet: Cardiac Discharge Activity: Slowly Increase Activity Home Medications: Amlodipine Besylate/Benazepril [Amlodipine-Benazepril 5-40 mg] 1 cap PO DAILY Ibuprofen [Motrin 800 mg Tablet] 800 mg PO TID 04/29/16 Oxycodone HCl 10 mg PO Q6HP PRN 04/29/16 Oxycodone HCl [Oxycontin] 20 mg PO Q12 04/29/16 Pregabalin [Lyrica] 300 mg PO BID 04/29/16 Acetaminophen [Tylenol 325 mg Tablet] 650 mg PO Q4HP PRN tablet 05/03/16 Albuterol Sulfate [Proair HFA] 1 - 2 puff IH Q4 PRN #1 inhaler 05/03/16 Levofloxacin [Levaquin 750 mg Tablet] 750 mg PO QHS #5 tablet 05/03/16 Prednisone [Deltasone 20 mg Tablet] 40 mg PO DAILY #7 tablet 05/03/16 History of Present Illness Patient complains of: Shortness of breath History of Present Illness: ANGELA ESCAMILLA is a 60 year old male presents to the emergency department couple day by his fiance with 4 days of cough, shortness of breath, confusion. Patient was found by EMS to have O2 sat of 70% on room air. In the emergency department he is noted to have bilateral pneumonia, COPD exacerbation, rhabdomyolysis, dehydration. He is a current smoker. Hospital Course Hospital Course: Patient was admitted for pneumonia. He was initially started on IV antibiotics. Sputum culture grew Haemophilus influenza. He was eventually transitioned to oral Levaquin and continued to improve. He is clinically improved, afebrile, hemodynamically stable at time of discharge. He will need follow-up chest x-ray in 3 weeks. Patient had an acute kidney injury, rhabdomyolysis, and dehydration on admission. These have been corrected. Patient has been counseled on smoking cessation. Patient had acute exacerbation of COPD as a result of pneumonia. He was initially on IV Solu-Medrol. He has now been transitioned to oral prednisone and continues to improve. He would be discharged on prednisone taper and albuterol HFA. Physical Exam Vital Signs: Temp Pulse Resp BP Pulse Ox 97.8 F 77 16 129/79 H 90 L 05/03/16 08:03 05/03/16 08:28 05/03/16 08:28 05/03/16 08:03 05/03/16 08:28 Intake & Output 05/02/16 05/03/16 05/04/16 06:59 06:59 06:59 Intake Total 2083 1212 Output Total 1100 Balance 983 1212 Weight 76.6 kg 73.2 kg GENERAL: No acute distress HEENT: Conjunctiva clear, nonicteric, moist mucous membranes, no JVD, midline trachea RESPIRATORY: Faint bilateral wheezes, good air excursion CARDIAC: Regular rate and rhythm, no murmurs/gallops/rubs ABDOMEN: Soft, nondistended, nontender, positive bowel sounds, no rebound, no guarding EXTREMETIES: No edema, cyanosis, clubbing NEUROLOGIC: Alert, oriented to person/place/time, CN's grossly intact, no focal deficits SKIN: No rash, wounds PSYCH: Normal mood, normal affect Results Laboratory Results: 05/03/16 04:50 05/03/16 04:50 05/03/16 05/03/16 04:50 04:50 WBC 20.1 H RBC 4.38 Hgb 12.9 L Hct 40.6 MCV 93 MCH 29.4 MCHC 31.7 L RDW 13.5 Plt Count 255 Seg Neutrophils % Not Reportable Lymphocytes % Not Reportable Monocytes % Not Reportable Eosinophils % Not Reportable Basophils % Not Reportable Absolute Neutrophils Not Reportable Absolute Lymphocytes Not Reportable Absolute Monocytes Not Reportable Absolute Eosinophils Not Reportable Absolute Basophils Not Reportable Sodium 142.4 Potassium 4.1 Chloride 107 Carbon Dioxide 25 Anion Gap 10 BUN 25 H Creatinine 0.75 Est GFR ( Amer) > 60 Est GFR (Non-Af Amer) > 60 Glucose 94 Calcium 8.8 04/30/16 05/03/16 04:05 04:50 Creatine Kinase 3134 H 326 H 04/29/16 16:15 Urine Culture - Final Clean Catch Midstream NO GROWTH 2 DAYS 04/29/16 13:56 Blood Culture - Preliminary Blood NO GROWTH AFTER 72 HOURS 04/29/16 13:00 Blood Culture - Preliminary Blood NO GROWTH AFTER 72 HOURS 04/29/16 11:50 Gram Stain - Final Sputum Sputum Culture - Final Haemophilus Influenzae Greatly Reduced Normal Maude Impressions: Chest X-Ray 04/29/16 12:02 IMPRESSION: Pulmonary vascular congestion Question early or developing infiltrate left lower lobe, edema versus pneumonia Qualifiers PATEINT BEING DISCHARGED WITH ANY OF THE FOLLOWING DIAGNOSIS?: No Plan Discharge Plan: Discontinue smoking. Follow-up chest x-ray 3-4 weeks. Time Spent: Less than 30 Minutes
[2016-05-03 11:33] VITALS: BP 123/65
== END 2016-05-03 12:00 | disposition home or self-care (01) | DRG 871 ==
LOC: ER 11:11 → EH 15:07 → UNDOADMIN 15:26 → EH 15:26 → 3W 20:49
PROVIDERS: ADMIT Family Medicine; ATTEND Family Medicine
PROC: 3E0F73Z Introduction of Anti-inflammatory into Respiratory Tract, Via Natural or Artificial Opening (ICD-10-PCS; principal; 2016-04-29)
PROC: 3E0234Z Introduction of Serum, Toxoid and Vaccine into Muscle, Percutaneous Approach (ICD-10-PCS; 2016-05-03)
DX: A41.9 Sepsis, unspecified organism (principal); J18.9 Pneumonia, unspecified organism; J96.01 Acute respiratory failure with hypoxia; N17.9 Acute kidney failure, unspecified; J44.1 Chronic obstructive pulmonary disease with (acute) exacerbation; E87.0 Hyperosmolality and hypernatremia; M62.82 Rhabdomyolysis; R65.20 Severe sepsis without septic shock; G89.29 Other chronic pain; E86.0 Dehydration; F17.210 Nicotine dependence, cigarettes, uncomplicated; F10.10 Alcohol abuse, uncomplicated; B96.3 Hemophilus influenzae [H. influenzae] as the cause of diseases classified elsewhere; E78.5 Hyperlipidemia, unspecified; Z23 Encounter for immunization; Z79.899 Other long term (current) drug therapy; Z83.3 Family history of diabetes mellitus
CPT/HCPCS: 36415; 71010; 80048; 80053; 81001; 82550; 82553; 82803; 82962; 83605; 83880; 84484; 85025; 85027; 85610; 87040; 87070; 87077; 87086; 87205; 90686; 93005; 93010; 94640; 96361; 96365; 99291; J0696; J1644; J1956; J2270; J2405; J2920; J3490; J7030; J7512; J7620; S0028

== ENCOUNTER 2019-06-04 21:54 | Inpatient (IN) | payer BC ==
[2019-06-04] MEDS ORDERED: NALOXONE HCL INJ/PF 0.4 MG/1 ML SDV IM ONE (22:06)
[2019-06-04] MEDS ORDERED: NORMAL SALINE 1000 ML 1,000 ML IV ONE (22:08)
--- NOTE | 2019-06-04 22:10 | ER Document Report ---
ED Medical Screen (RME) - General Stated Complaint: DIFFICULTY BREATHING,COUGH Notes: Patient is a 63-year-old male with a past medical history of chronic pain on 2 different opioid medications who was recently diagnosed with bronchitis, placed on an antibiotic and a steroid. reports he took the steroids and stop the antibiotics because of bad reactions. She states she is concerned he has pneumonia because the last time he got like this he had pneumonia. She reports difficulty breathing and increased somnolence recently. She also adds that he had to "bury his son today". She denies any excess medication taking or alcohol or other drugs. Patient appears altered, easily arousable but has pinpoint pupils decreased respirations until sternal rub arouses him and his O2 increases. I have treated and performed a rapid initial assessment of this patient. A comprehensive ED assessment and evaluation of the patient, analysis of test results and completion of medical decision making process will be conducted by additional ED providers. Patient moved immediately to the back, charge nurse and ED doc notified. TRAVEL OUTSIDE OF THE [place] IN LAST 30 DAYS: No - Related Data Allergies/Adverse Reactions: No Known Allergies Allergy (Unverified 09/14/10 11:07) Past Medical History - Past Medical History Cardiac Medical History: Reports: Hx Hypercholesterolemia Endocrine Medical History: Reports: Hx Diabetes Mellitus Type 1 Past Surgical History: Reports: Hx Orthopedic Surgery - Back/neck - Immunizations Hx Diphtheria, Pertussis, Tetanus Vaccination: Yes
[2019-06-04 22:38] LABS: ABSOLUTE BASOPHILS # (AUTO) 0.1 10^3/uL (0.0-0.2); ABSOLUTE EOSINOPHILS # (AUTO) 0.2 10^3/uL (0.0-0.6); ABSOLUTE LYMPHOCYTES (AUTO) 1.6 10^3/uL (0.5-4.7); ABSOLUTE MONOCYTES (AUTO) 0.9 10^3/uL (0.1-1.4); ABSOLUTE NEUT (AUTO) 10.1 10^3/uL (1.7-8.2); BASOPHILS % (AUTO) 0.6 % (0-2); EOSINOPHILS % (AUTO) 1.7 % (0-6); HEMATOCRIT 44.8 % (37.9-51.0); LYMPHOCYTES % (AUTO) 12.4 % (13-45); MEAN CORPUSCULAR HEMOGLOBIN 30.4 pg (27.0-33.4); MEAN CORPUSCULAR HGB CONC 33.5 g/dL (32.0-36.0); MEAN CORPUSCULAR VOLUME 91 fl (80-97); MONOCYTES % (AUTO) 6.9 % (3-13); PLATELET COUNT 331 10^3/uL (150-450); RED BLOOD COUNT 4.93 10^6/uL (4.35-5.55); RED CELL DISTRIBUTION WIDTH 14.2 % (11.5-14.0); SEGMENTED NEUTROPHILS % (AUTO) 78.4 % (42-78); TOTAL CELLS COUNTED % (AUTO) 100 %; WHITE BLOOD COUNT 12.9 10^3/uL (4.0-10.5)
[2019-06-04 22:56] LABS: ALBUMIN 3.5 g/dL (3.5-5.0); ALKALINE PHOSPHATASE 95 U/L (38-126); ANION GAP 7 (5-19); ASPARTATE AMINO TRANSFERASE 27 U/L (17-59); BILIRUBIN,DIRECT 0.1 mg/dL (0.0-0.4); BILIRUBIN,TOTAL 0.4 mg/dL (0.2-1.3); BLOOD UREA NITROGEN 14 mg/dL (7-20); CALCIUM 8.7 mg/dL (8.4-10.2); CARBON DIOXIDE 31 mmol/L (22-30); CHLORIDE 101 mmol/L (98-107); GLUCOSE 113 mg/dL (75-110); POTASSIUM 4.1 mmol/L (3.6-5.0); TOTAL PROTEIN 6.5 g/dL (6.3-8.2)
--- NOTE | 2019-06-04 23:03 | RADIOLOGY REPORT (SQ) ---
EXAM DESCRIPTION: Noncontrast CT head CLINICAL HISTORY: 63 years Male altered mental status. TECHNIQUE: Noncontrast CT head. All CT scans at this facility use dose modulation, iterative reconstruction, and/or weight based dosing when appropriate to reduce radiation dose to as low as reasonably achievable. COMPARISON: None. FINDINGS: Almaraz matter, white matter, ventricles, and cisterns are within normal limits. No acute hemorrhage or mass effect. Visualized portions of paranasal sinuses demonstrate a small mucous retention cyst versus polyp within the right maxillary sinus. Mastoids are clear. Visualized portions of the calvarium are within normal limits. IMPRESSION: 1. No acute intracranial findings. If there is clinical concern for acute stroke, consider MRI brain as a more sensitive evaluation.
[2019-06-04 23:13] LABS: ALCOHOL < 10 mg/dL (NONE DETECTED)
--- NOTE | 2019-06-04 23:14 | RADIOLOGY REPORT (SQ) ---
EXAM DESCRIPTION: XR CHEST 1 VIEW COMPLETED DATE/TME: 06/04/2019 22:07 CLINICAL HISTORY: 63 years Male, SOB COMPARISON:Apr 29 2016 FINDINGS: Adequate lung volume, pulmonary vascular congestion, small bibasilar atelectasis or scar, normal cardiac silhouette, and cervical spinal hardware. IMPRESSION: Pulmonary vascular congestion.
[2019-06-04] MEDS ORDERED: NALOXONE HCL INJ/PF 0.4 MG/1 ML SDV IV ONE (23:15)
--- NOTE | 2019-06-04 23:24 | ER Document Report ---
ED General - General Chief Complaint: Altered Mental Status Stated Complaint: DIFFICULTY BREATHING,COUGH Time Seen by Provider: 06/04/19 23:05 TRAVEL OUTSIDE OF THE [place] IN LAST 30 DAYS: No - HPI Notes: Mr. Wang is a 63-year-old male with a history of COPD, cigarette smoking and chronic pain syndrome on OxyContin seen at this time for evaluation of altered mental status. History is primarily obtained from the patient's who is at bedside. She reports that he has been sick with "bronchitis" over the past week and was given prednisone and an unknown antibiotic by his primary care provider. She says he has been coughing and running low-grade fever. He has become less responsive this afternoon and she brought him to the hospital. She notes that he had something similar to this a couple years ago and was hospitalized at that time with pneumonia. - Related Data Allergies/Adverse Reactions: No Known Allergies Allergy (Unverified 09/14/10 11:07) Past Medical History - General Information source: Relative, [facility] Records - Social History Smoking Status: Never Smoker Chew tobacco use (# tins/day): No Frequency of alcohol use: None Drug Abuse: None Family History: Reviewed & Not Pertinent Patient has suicidal ideation: No Patient has homicidal ideation: No - Past Medical History Cardiac Medical History: Reports: Hx Hypercholesterolemia Pulmonary Medical History: Reports: Hx COPD, Hx Pneumonia Endocrine Medical History: Reports: Hx Diabetes Mellitus Type 1 Past Surgical History: Reports: Hx Orthopedic Surgery - Back/neck - Immunizations Hx Diphtheria, Pertussis, Tetanus Vaccination: Yes Review of Systems - Review of Systems -: Yes ROS unobtainable due to patient's medical condition Physical Exam - Vital signs Vitals: Pulse Resp BP Pulse Ox 94 22 H 103/51 L 81 L 06/04/19 22:08 06/04/19 22:08 06/04/19 22:08 06/04/19 22:08 Notes: GENERAL: Obtunded male with O2 saturation of 98% on 4 L nasal O2. said patient is not on oxygen at home. SKIN: Good turgor no rashes. HEAD: Normocephalic atraumatic. EYES: pupils are pinpoint equal and sluggishly reactive to light conjunctivae and sclerae clear. EARS: CANALS AND TMS CLEAR. NOSE: CLEAR. MOUTH: Moist mucosa. Good dentition. No stridor or edema. No drooling. Throat: Gag reflex intact. NECK: Healed laminectomy scar present. Supple. No masses or thyromegaly. No adenopathy. Carotids 2+ without bruits. No JVD. BACK: Symmetrical without tenderness. CHEST: Respirations shallow. Breath sounds symmetrical with scattered rhonchi bilaterally most prominent at the bases. HEART: Regular rhythm. No murmur gallop or rub. ABDOMEN: Obese. Soft nontender without masses, organomegaly or rebound. Bowel sounds normally active. No bruits. GENITALIA: Deferred. EXTREMITIES: No edema. No calf tenderness. Cap refill less than 1.5 seconds. Dorsalis pedis and posterior tibial pulses 3+ and symmetrical. NEUROLOGICAL: GCS 13; eyes 3, verbal 4, best motor 6. Obtunded. Slurred speech. Cranial nerves II through XII intact. Moves all 4 extremities symmetrically Course - Vital Signs Vital signs: Temp Pulse Resp BP Pulse Ox 98.2 F 84 20 122/87 H 93 06/05/19 01:00 06/04/19 22:23 06/05/19 00:01 06/05/19 00:01 06/04/19 23:01 - Laboratory Result Diagrams: 06/04/19 22:19 06/04/19 22:19 Laboratory results interpreted by me: 06/04/19 06/04/19 06/04/19 22:19 22:19 23:22 WBC 12.9 H RDW 14.2 H Lymph % (Auto) 12.4 L Absolute Neuts (auto) 10.1 H Seg Neutrophils % 78.4 H Carbonic Acid 1.56 H ABG pH 7.34 L ABG pCO2 51.8 H ABG pO2 61.5 L ABG HCO3 27.6 H ABG Total CO2 29.2 H ABG O2 Saturation 90.0 L Carbon Dioxide 31 H Creatinine 1.27 H Est GFR (MDRD) Non-Af 58 L Glucose 113 H Discharge - Discharge Clinical Impression: Accidental opioid intoxication Pneumonia Qualifiers: Pneumonia type: due to unspecified organism Laterality: bilateral Lung location: lower lobe of lung Qualified Code(s): J18.9 - Pneumonia, unspecified organism Altered mental status Qualifiers: Altered mental status type: stupor Qualified Code(s): R40.1 - Stupor Condition: Serious Disposition: ADMITTED INPATIENT Admitting Provider: Diego (Hospitalist) Unit Admitted: IMCU
[2019-06-04 23:29] LABS: ARTERIAL BLOOD BASE EXCESS 1.1 mmol/L; ARTERIAL BLOOD H2CO3 1.56 mmol/L (1.05-1.35); ARTERIAL BLOOD HCO3 27.6 mmol/L (20-24); ARTERIAL BLOOD PCO2 51.8 mmHg (35-45); ARTERIAL BLOOD PH 7.34 (7.35-7.45); ARTERIAL BLOOD PO2 61.5 mmHg (80-100); ARTERIAL BLOOD TOTAL CO2 29.2 mmol/L (23-27)
[2019-06-04 23:30] LABS: ARTERIAL BLOOD FIO2 4L
[2019-06-04] MEDS ORDERED: LORAZEPAM INJ 2 MG/1 ML VIAL IV ONE (23:57)
[2019-06-04] MEDS ORDERED: VANCOMYCIN HCL INJ 1000 MG VIAL IV ONE (23:59)
[2019-06-04] MEDS ORDERED: NORMAL SALINE 1000 ML 2,310 ML IV ONE (23:59)
[2019-06-04] MEDS ORDERED: PIPERACILLIN/TAZOBACTAM 4.5 GM VIAL IV ONE (23:59)
[2019-06-05 00:13] LABS: A TYPE INFLUENZA AG NEGATIVE (NEGATIVE); B INFLUENZA AG NEGATIVE (NEGATIVE)
[2019-06-05 00:14] LABS: APPEARANCE,URINE SLIGHTLY-CLOUDY; BILIRUBIN,URINE NEGATIVE (NEGATIVE); COLOR,URINE YELLOW; GLUCOSE, URINE NEGATIVE (NEGATIVE); KETONES,URINE NEGATIVE (NEGATIVE); LEUKOCYTE ESTERASE,URINE NEGATIVE (NEGATIVE); NITRITE,URINE NEGATIVE (NEGATIVE); PROTEIN,URINE NEGATIVE (NEGATIVE); URINE SPECIFIC GRAVITY 1.015; UROBILINOGEN,URINE NEGATIVE mg/dL (<2.0)
[2019-06-05 00:19] LABS: INTERNATIONAL RATION (INR) 1.02; PROTHROMBIN TIME 13.4 SEC (11.4-15.4)
[2019-06-05 01:04] LABS: URINE BARBITURATES SCREEN NEGATIVE; URINE MARIJUANA (THC) SCREEN NEGATIVE; URINE METHADONE SCREEN NEGATIVE; URINE PHENCYCLIDINE SCREEN NEGATIVE
[2019-06-05 01:08] LABS: URINE AMPHETAMINES SCREEN NEGATIVE
[2019-06-05 01:22] LABS: URINE BENZODIAZEPINES SCREEN UNCONFIRMED POSITIVE
[2019-06-05] MEDS ORDERED: ACETAMINOPHEN 325 MG TABLET PO PRN (01:49)
[2019-06-05] MEDS ORDERED: IPRATROPIUM/ALBUTEROL 0.5-2.5 MG/3 ML AMPUL NEB PRN (01:49)
[2019-06-05] MEDS ORDERED: PREDNISONE 20 MG TABLET PO ONE (02:15)
[2019-06-05] MEDS ORDERED: NALOXONE HCL INJ/PF 0.4 MG/1 ML SDV IV PRN (02:32)
--- NOTE | 2019-06-05 03:59 | PDOC H&P ---
History of Present Illness Admission Date/PCP: 06/05/19 02:06 KOMAL RAMON NP Patient complains of: Shortness of breath History of Present Illness: ANGELA ESCAMILLA is a 63 year old male with a past medical history of COPD, bronchitis, opiate dependent chronic pain. He presents with shortness of breath and confusion. In the emergency department he is obtunded with pinpoint pupils, hypoxic and hypercapnic respiratory failure and a nonproductive cough. His is at bedside who verifies he is on OxyContin twice a day but is not thought to have intentional overdose. In the emergency department he received Narcan 2 mg resulting in agitation and a respiratory rate in the 30s. He is referred to the hospitalist for admission. At this time patient is reevaluated by myself he is found sedated with pinpoint pupils requiring a repeat dose of Narcan 0.8 mg resulting in improved blood pressure and respiratory rate. Per intake patient is recently grieving after the of his son earlier in the day. Past Medical History Cardiac Medical History: Reports: Hyperlipidema Pulmonary Medical History: Reports: Chronic Obstructive Pulmonary Disease (COPD), Pneumonia Endocrine Medical History: Reports: Diabetes Mellitus Type 1 Past Surgical History Past Surgical History: Reports: Orthopedic Surgery - Back/neck Social History Information Source: Patient, Relative, [facility] Records Smoking Status: Current Every Day Smoker Electronic Cigarette use?: No Number of Years Smokin Frequency of Alcohol Use: Occasional Hx Recreational Drug Use: No Drugs: None Hx Prescription Drug Abuse: Yes - Advance Directive Resuscitation Status: Full Code Family History Family History: Hypertension Parental Family History Reviewed: Yes Children Family History Reviewed: Yes Sibling(s) Family History Reviewed.: Yes Medication/Allergy Home Medications: Amlodipine Besylate/Benazepril [Amlodipine-Benazepril 5-40 mg] 1 cap PO DAILY 04/29/16 Ibuprofen [Motrin 800 mg Tablet] 800 mg PO TID 04/29/16 Oxycodone HCl 10 mg PO Q6HP PRN 04/29/16 Oxycodone HCl [Oxycontin] 20 mg PO Q12 04/29/16 Pregabalin [Lyrica] 300 mg PO BID 04/29/16 Acetaminophen [Tylenol 325 mg Tablet] 650 mg PO Q4HP PRN tablet 05/03/16 Albuterol Sulfate [Proair HFA] 1 - 2 puff IH Q4 PRN #1 inhaler 05/03/16 Levofloxacin [Levaquin 750 mg Tablet] 750 mg PO QHS #5 tablet 05/03/16 Prednisone [Deltasone 20 mg Tablet] 40 mg PO DAILY #7 tablet 05/03/16 Allergies/Adverse Reactions: No Known Allergies Allergy (Unverified 09/14/10 11:07) Review of Systems ROS unobtainable: Due to mental status Physical Exam Vital Signs: Temp Pulse Resp BP Pulse Ox 98.2 F 84 19 107/55 L 95 06/05/19 01:00 06/04/19 22:23 06/05/19 03:15 06/05/19 03:15 06/05/19 03:15 Intake & Output 06/03/19 06/04/19 06/05/19 11:59 11:59 11:59 Intake Total 3310 Output Total 400 Balance 2910 Weight 77.111 kg General appearance: PRESENT: disheveled, severe distress, well-developed, well- nourished. ABSENT: cooperative Head exam: PRESENT: atraumatic, normocephalic Eye exam: PRESENT: conjunctiva pink, EOMI, PERRLA, other - Pinpoint pupils. ABSENT: scleral icterus Ear exam: PRESENT: normal external ear exam Mouth exam: PRESENT: moist, tongue midline Neck exam: ABSENT: carotid bruit, JVD, lymphadenopathy, thyromegaly Respiratory exam: PRESENT: crackles, prolonged expiratory phas, symmetrical, unlabored - Unlabored until Narcan, other - Upper airway rhonchi Cardiovascular exam: PRESENT: RRR. ABSENT: diastolic murmur, rubs, systolic murmur Pulses: PRESENT: normal dorsalis pedis pul Vascular exam: PRESENT: normal capillary refill GI/Abdominal exam: PRESENT: distended, hypoactive bowel sounds, normal bowel sounds, soft. ABSENT: guarding, mass, organolmegaly, rebound, tenderness Rectal exam: PRESENT: deferred Neurological exam: PRESENT: altered, oriented to person, oriented to place, CN II-XII grossly intact. ABSENT: oriented to time, oriented to situation Psychiatric exam: PRESENT: flat affect Skin exam: PRESENT: dry, intact, warm. ABSENT: cyanosis, rash Results Laboratory Results: 06/04/19 22:19 06/04/19 22:19 0206/04/19 06/04/19 22:19 22:19 22:19 WBC 12.9 H RBC 4.93 Hgb 15.0 Hct 44.8 MCV 91 MCH 30.4 MCHC 33.5 RDW 14.2 H Plt Count 331 Seg Neutrophils % 78.4 H Carbonic Acid HCO3/H2CO3 Ratio ABG pH ABG pCO2 ABG pO2 ABG HCO3 ABG O2 Saturation ABG Base Excess FiO2 Sodium 138.6 Potassium 4.1 Chloride 101 Carbon Dioxide 31 H Anion Gap 7 BUN 14 Creatinine 1.27 H Est GFR ( Amer) > 60 Glucose 113 H Lactic Acid 1.2 Calcium 8.7 Total Bilirubin 0.4 AST 27 Alkaline Phosphatase 95 Total Protein 6.5 Albumin 3.5 Urine Color Urine Appearance Urine pH Ur Specific Peck Urine Protein Urine Glucose (UA) Urine Ketones Urine Blood Urine Nitrite Ur Leukocyte Esterase Urine WBC (Auto) Urine RBC (Auto) 06/04/19 06/04/19 06/05/19 23:22 23:35 03:06 WBC RBC Hgb Hct MCV MCH MCHC RDW Plt Count Seg Neutrophils % Carbonic Acid 1.56 H HCO3/H2CO3 Ratio 17:1 ABG pH 7.34 L ABG pCO2 51.8 H ABG pO2 61.5 L ABG HCO3 27.6 H ABG O2 Saturation 90.0 L ABG Base Excess 1.1 FiO2 4L Sodium Potassium Chloride Carbon Dioxide Anion Gap BUN Creatinine Est GFR ( Amer) Glucose Lactic Acid 0.9 Calcium Total Bilirubin AST Alkaline Phosphatase Total Protein Albumin Urine Color YELLOW Urine Appearance SLIGHTLY-CLOUDY Urine pH 5.0 Ur Specific Peck 1.015 Urine Protein NEGATIVE Urine Glucose (UA) NEGATIVE Urine Ketones NEGATIVE Urine Blood NEGATIVE Urine Nitrite NEGATIVE Ur Leukocyte Esterase NEGATIVE Urine WBC (Auto) 2 Urine RBC (Auto) 3 06/04/19 06/04/19 06/05/19 22:19 22:19 00:50 Troponin I < 0.012 < 0.012 NT-Pro-B Natriuret Pep 125 Impressions: Chest X-Ray 06/04/19 22:07 IMPRESSION: Pulmonary vascular congestion. Head CT 06/04/19 22:07 IMPRESSION: 1. No acute intracranial findings. If there is clinical concern for acute stroke, consider MRI brain as a more sensitive evaluation. Assessment and Plan - Diagnosis (1) Pneumonia Qualifiers: Pneumonia type: due to unspecified organism Laterality: bilateral Lung location: lower lobe of lung Qualified Code(s): J18.9 - Pneumonia, unspecified organism Is this a current diagnosis for this admission?: Yes Plan: Pneumonia care set deployed, albuterol, Atrovent, Levaquin, follow-up CBC and blood culture (2) Acute hypoxemic respiratory failure Is this a current diagnosis for this admission?: Yes Plan: Complicated by pneumonia, COPD and respiratory depression. BiPAP, supplemental oxygen, steroids and antibiotics ordered (3) Tobacco abuse Is this a current diagnosis for this admission?: Yes Plan: Nicotine replacement as needed (4) Altered mental status Qualifiers: Altered mental status type: stupor Qualified Code(s): R40.1 - Stupor Is this a current diagnosis for this admission?: Yes Plan: Documented history of prescription drug abuse, pinpoint pupils and respiratory failure reversed with Narcan. Narcan ordered every hour as needed respiratory rate less than 12 - Time Time Spent with patient: 25-34 minutes - Inpatient Certification Medical Necessity: Need Close Monitoring Due to Risk of Patient Decompensation
[2019-06-05] MEDS: HEPARIN SOD (PORCINE) 5,000 UNIT/ML 1 ML VIAL SUBCUT SCH ×3 (06:20→21:34)
[2019-06-05 06:24] LABS: HEMATOCRIT 36.6 % (37.9-51.0); MEAN CORPUSCULAR HEMOGLOBIN 30.5 pg (27.0-33.4); MEAN CORPUSCULAR HGB CONC 33.8 g/dL (32.0-36.0); MEAN CORPUSCULAR VOLUME 90 fl (80-97); PLATELET COUNT 262 10^3/uL (150-450); RED BLOOD COUNT 4.06 10^6/uL (4.35-5.55); RED CELL DISTRIBUTION WIDTH 13.8 % (11.5-14.0); WHITE BLOOD COUNT 15.7 10^3/uL (4.0-10.5)
[2019-06-05 06:25] LABS: HEMOGLOBIN 12.4 g/dL (13.5-17.0)
[2019-06-05 06:36] LABS: ANION GAP 7 (5-19); BLOOD UREA NITROGEN 12 mg/dL (7-20); CALCIUM 7.8 mg/dL (8.4-10.2); CARBON DIOXIDE 23 mmol/L (22-30); CHLORIDE 110 mmol/L (98-107); GLUCOSE 130 mg/dL (75-110); POTASSIUM 3.8 mmol/L (3.6-5.0)
[2019-06-05] MEDS: IPRATROPIUM/ALBUTEROL 0.5-2.5 MG/3 ML AMPUL NEB SCH ×2 (07:26→15:43)
[2019-06-05] MEDS: LEVOFLOXACIN 750 MG/D5W RTU 750 MG/150 ML RTUPB IV SCH (07:41)
[2019-06-05 08:34] LABS: URINE COCAINE SCREEN NEGATIVE
[2019-06-05] MEDS: FLUTICASONE NASAL SPRAY 50 MCG/SPRY 120 SPRAY/16 GM NASL SCH ×3 (09:14→21:43)
[2019-06-05] MEDS: METHYLPREDNISOLONE INJ 40 MG/1 ML SDV IV SCH ×2 (09:15→17:23)
--- NOTE | 2019-06-05 09:45 | EKG REPORT ---
SEVERITY:- ABNORMAL ECG - SINUS RHYTHM LOW VOLTAGE WITH RIGHT AXIS DEVIATION : Confirmed by: Kevin Buchanan MD 05-Jun-2019 09:44:36
[2019-06-05] MEDS ORDERED: PREDNISONE 20 MG TABLET PO SCH (10:00)
--- NOTE | 2019-06-05 10:07 | PDOC PROGRESS REPORT ---
Subjective Progress Note for:: 06/05/19 Subjective:: This is a 63-year-old male with COPD and chronic opiate dependence who was brought in due to shortness of breath and lethargy. Patient was found to be obtunded and responded well to Narcan. He did get a total of 3 doses of Narcan overnight. He was also found to be in COPD exacerbation. He was placed on BiPAP and has diffuse to wear it. Upon encounter this morning, patient is saturating on nasal cannula. He is sleepy but is easily arousable. He is oriented to person and place. He says shortness of breath has significantly improved. Denies chest pain. Reason For Visit: COPD EXACERBATION EXCESSIVE OPIATE SEDATION Physical Exam Vital Signs: Temp Pulse Resp BP Pulse Ox 97.3 F 69 16 95/57 L 90 L 06/05/19 07:03 06/05/19 07:26 06/05/19 07:26 06/05/19 07:03 06/05/19 07:26 Intake & Output 06/04/19 06/05/19 06/06/19 06:59 06:59 06:59 Intake Total 3310 360 Output Total 750 50 Balance 2560 310 Weight 183 lb 10.321 oz General appearance: PRESENT: no acute distress, well-developed, well-nourished Head exam: PRESENT: atraumatic, normocephalic Eye exam: PRESENT: conjunctiva pink, EOMI, PERRLA. ABSENT: scleral icterus Ear exam: PRESENT: normal external ear exam Mouth exam: PRESENT: moist, tongue midline Neck exam: ABSENT: carotid bruit, JVD, lymphadenopathy, thyromegaly Respiratory exam: PRESENT: clear to auscultation alcides. ABSENT: rales, rhonchi, wheezes Cardiovascular exam: PRESENT: RRR. ABSENT: diastolic murmur, rubs, systolic murmur Pulses: PRESENT: normal dorsalis pedis pul GI/Abdominal exam: PRESENT: normal bowel sounds, soft. ABSENT: distended, guard ing, mass, organolmegaly, rebound, tenderness Rectal exam: PRESENT: deferred Extremities exam: PRESENT: full ROM. ABSENT: calf tenderness, clubbing, pedal edema Neurological exam: PRESENT: oriented to person, oriented to place, CN II-XII grossly intact. ABSENT: motor sensory deficit Results Laboratory Results: 06/05/19 06:01 06/05/19 06:01 06/04/19 06/04/19 06/04/19 22:19 22:19 22:19 WBC 12.9 H RBC 4.93 Hgb 15.0 Hct 44.8 MCV 91 MCH 30.4 MCHC 33.5 RDW 14.2 H Plt Count 331 Seg Neutrophils % 78.4 H Carbonic Acid HCO3/H2CO3 Ratio ABG pH ABG pCO2 ABG pO2 ABG HCO3 ABG O2 Saturation ABG Base Excess FiO2 Sodium 138.6 Potassium 4.1 Chloride 101 Carbon Dioxide 31 H Anion Gap 7 BUN 14 Creatinine 1.27 H Est GFR ( Amer) > 60 Glucose 113 H Lactic Acid 1.2 Calcium 8.7 Total Bilirubin 0.4 AST 27 Alkaline Phosphatase 95 Total Protein 6.5 Albumin 3.5 Urine Color Urine Appearance Urine pH Ur Specific [place] Urine Protein Urine Glucose (UA) Urine Ketones Urine Blood Urine Nitrite Ur Leukocyte Esterase Urine WBC (Auto) Urine RBC (Auto) 06/04/19 06/04/19 06/05/19 23:22 23:35 03:06 WBC RBC Hgb Hct MCV MCH MCHC RDW Plt Count Seg Neutrophils % Carbonic Acid 1.56 H HCO3/H2CO3 Ratio 17:1 ABG pH 7.34 L ABG pCO2 51.8 H ABG pO2 61.5 L ABG HCO3 27.6 H ABG O2 Saturation 90.0 L ABG Base Excess 1.1 FiO2 4L Sodium Potassium Chloride Carbon Dioxide Anion Gap BUN Creatinine Est GFR ( Amer) Glucose Lactic Acid 0.9 Calcium Total Bilirubin AST Alkaline Phosphatase Total Protein Albumin Urine Color YELLOW Urine Appearance SLIGHTLY-CLOUDY Urine pH 5.0 Ur Specific [place] 1.015 Urine Protein NEGATIVE Urine Glucose (UA) NEGATIVE Urine Ketones NEGATIVE Urine Blood NEGATIVE Urine Nitrite NEGATIVE Ur Leukocyte Esterase NEGATIVE Urine WBC (Auto) 2 Urine RBC (Auto) 3 06/05/19 06/05/19 06/05/19 06:01 06:01 06:01 WBC 15.7 H RBC 4.06 L Hgb 12.4 L D Hct 36.6 L MCV 90 MCH 30.5 MCHC 33.8 RDW 13.8 Plt Count 262 Seg Neutrophils % Carbonic Acid HCO3/H2CO3 Ratio ABG pH ABG pCO2 ABG pO2 ABG HCO3 ABG O2 Saturation ABG Base Excess FiO2 Sodium 140.4 Potassium 3.8 Chloride 110 H Carbon Dioxide 23 Anion Gap 7 BUN 12 Creatinine 0.84 Est GFR ( Amer) > 60 Glucose 130 H Lactic Acid 0.6 L Calcium 7.8 L Total Bilirubin AST Alkaline Phosphatase Total Protein Albumin Urine Color Urine Appearance Urine pH Ur Specific [place] Urine Protein Urine Glucose (UA) Urine Ketones Urine Blood Urine Nitrite Ur Leukocyte Esterase Urine WBC (Auto) Urine RBC (Auto) 06/04/19 06/04/19 06/05/19 22:19 22:19 00:50 Troponin I < 0.012 < 0.012 NT-Pro-B Natriuret Pep 125 Impressions: Chest X-Ray 06/04/19 22:07 IMPRESSION: Pulmonary vascular congestion. Head CT 06/04/19 22:07 IMPRESSION: 1. No acute intracranial findings. If there is clinical concern for acute stroke, consider MRI brain as a more sensitive evaluation. Assessment and Plan - Diagnosis (1) Acute metabolic encephalopathy Is this a current diagnosis for this admission?: Yes Plan: Improved. Likely a combination from narcotic effect and hypercapnia from COPD exacerbation. (2) Acute respiratory failure with hypoxia and hypercapnia Is this a current diagnosis for this admission?: Yes Plan: Secondary to COPD exacerbation. Noncompliant to BiPAP. Currently saturating on nasal cannula. We will repeat an ABG. (3) COPD with acute exacerbation Is this a current diagnosis for this admission?: Yes Plan: Switch oral steroids to Solu-Medrol. Continue breathing treatments. - Time Time Spent with patient: 25-34 minutes
[2019-06-05] MEDS: FUROSEMIDE INJ/PF 20 MG/2 ML SDV IV SCH (10:29)
[2019-06-05] MEDS: PREGABALIN 100 MG CAPSULE PO SCH ×2 (12:52→21:34)
[2019-06-05] MEDS ORDERED: OXYCODONE HCL SR 10 MG TABLET PO ONE (13:00)
[2019-06-05 13:36] LABS: ARTERIAL BLOOD BASE EXCESS 1.2 mmol/L; ARTERIAL BLOOD H2CO3 1.43 mmol/L (1.05-1.35); ARTERIAL BLOOD HCO3 27.1 mmol/L (20-24); ARTERIAL BLOOD O2 SATURATION 94.9 % (94-98); ARTERIAL BLOOD PCO2 47.4 mmHg (35-45); ARTERIAL BLOOD PH 7.38 (7.35-7.45); ARTERIAL BLOOD PO2 76.3 mmHg (80-100); ARTERIAL BLOOD TOTAL CO2 28.6 mmol/L (23-27)
[2019-06-05 13:37] LABS: ARTERIAL BLOOD FIO2 4L
[2019-06-05] MEDS ORDERED: (PENDING PHARMACY ID) (Oxycodone Hcl [Oxycodone Hcl] 5 MG) PO PRN (14:58)
[2019-06-05] MEDS: OXYCODONE HCL IR 5 MG TABLET PO PRN (15:35)
[2019-06-05] MEDS: OXYCODONE HCL SR 10 MG TABLET PO SCH (21:34)
[2019-06-06] MEDS: IPRATROPIUM/ALBUTEROL 0.5-2.5 MG/3 ML AMPUL NEB SCH ×3 (00:06→15:27)
[2019-06-06] MEDS: OXYCODONE HCL IR 5 MG TABLET PO PRN ×3 (03:39→22:01)
[2019-06-06] MEDS: METHYLPREDNISOLONE INJ 40 MG/1 ML SDV IV SCH ×3 (03:39→21:59)
[2019-06-06 05:20] LABS: HEMATOCRIT 38.1 % (37.9-51.0); HEMOGLOBIN 12.8 g/dL (13.5-17.0); MEAN CORPUSCULAR HEMOGLOBIN 30.1 pg (27.0-33.4); MEAN CORPUSCULAR HGB CONC 33.6 g/dL (32.0-36.0); MEAN CORPUSCULAR VOLUME 90 fl (80-97); PLATELET COUNT 293 10^3/uL (150-450); RED BLOOD COUNT 4.25 10^6/uL (4.35-5.55); RED CELL DISTRIBUTION WIDTH 13.9 % (11.5-14.0); WHITE BLOOD COUNT 13.7 10^3/uL (4.0-10.5)
[2019-06-06] MEDS: HEPARIN SOD (PORCINE) 5,000 UNIT/ML 1 ML VIAL SUBCUT SCH ×3 (05:37→21:58)
[2019-06-06 05:39] LABS: ANION GAP 8 (5-19); BLOOD UREA NITROGEN 13 mg/dL (7-20); CALCIUM 8.8 mg/dL (8.4-10.2); CARBON DIOXIDE 27 mmol/L (22-30); CHLORIDE 106 mmol/L (98-107); GLUCOSE 205 mg/dL (75-110); POTASSIUM 3.5 mmol/L (3.6-5.0)
[2019-06-06] MEDS: LEVOFLOXACIN 750 MG/D5W RTU 750 MG/150 ML RTUPB IV SCH (07:48)
[2019-06-06] MEDS: PREGABALIN 100 MG CAPSULE PO SCH ×2 (09:02→21:52)
[2019-06-06] MEDS: OXYCODONE HCL SR 10 MG TABLET PO SCH ×2 (09:02→21:52)
[2019-06-06] MEDS: FUROSEMIDE INJ/PF 20 MG/2 ML SDV IV SCH (09:04)
[2019-06-06] MEDS: FLUTICASONE NASAL SPRAY 50 MCG/SPRY 120 SPRAY/16 GM NASL SCH ×2 (09:14→22:10)
--- NOTE | 2019-06-06 12:51 | PDOC PROGRESS REPORT ---
Subjective Progress Note for:: 06/06/19 Subjective:: This is a 63-year-old male with COPD and chronic opiate dependence who was brought in due to shortness of breath and lethargy. Patient was found to be obtunded and responded well to Narcan. He did get a total of 3 doses of Narcan overnight. He was also found to be in COPD exacerbation. He was placed on BiPAP and has diffuse to wear it. 06/05: Upon encounter this morning, patient is saturating on nasal cannula. He is sleepy but is easily arousable. He is oriented to person and place. He says shortness of breath has significantly improved. Denies chest pain. 06/06: No acute event overnight. Patient is fully awake and coherent upon encounter morning. He says that his shortness of breath continue to improve. Wheezing has also improved compared to yesterday. We will try to wean off supplemental O2 today. PAtient is not on an ICS/LABA inhaler at home. Will need to Advair or Symbicort upon discharge. Reason For Visit: COPD EXACERBATION EXCESSIVE OPIATE SEDATION Physical Exam Vital Signs: Temp Pulse Resp BP Pulse Ox 97.5 F 75 16 107/55 L 98 06/06/19 07:49 06/06/19 07:49 06/06/19 07:49 06/06/19 07:49 06/06/19 07:49 Intake & Output 06/05/19 06/06/19 06/07/19 06:59 06:59 06:59 Intake Total 3310 360 372 Output Total 750 500 Balance 2560 -140 372 Weight 183 lb 10.321 oz 175 lb 0.752 oz General appearance: PRESENT: no acute distress, well-developed, well-nourished Head exam: PRESENT: atraumatic, normocephalic Eye exam: PRESENT: conjunctiva pink, EOMI, PERRLA. ABSENT: scleral icterus Ear exam: PRESENT: normal external ear exam Mouth exam: PRESENT: moist, tongue midline Neck exam: ABSENT: carotid bruit, JVD, lymphadenopathy, thyromegaly Respiratory exam: PRESENT: rhonchi, wheezes. ABSENT: rales Cardiovascular exam: PRESENT: RRR. ABSENT: diastolic murmur, rubs, systolic murmur Pulses: PRESENT: normal dorsalis pedis pul Rectal exam: PRESENT: deferred Extremities exam: PRESENT: full ROM. ABSENT: calf tenderness, clubbing, pedal edema Neurological exam: PRESENT: alert, awake, oriented to person, oriented to place, oriented to time, oriented to situation, CN II-XII grossly intact. ABSENT: motor sensory deficit Results Laboratory Results: 06/06/19 04:33 06/06/19 04:33 06/05/19 06/06/19 06/06/19 13:15 04:33 04:33 WBC 13.7 H RBC 4.25 L Hgb 12.8 L Hct 38.1 MCV 90 MCH 30.1 MCHC 33.6 RDW 13.9 Plt Count 293 Carbonic Acid 1.43 H HCO3/H2CO3 Ratio 18:1 ABG pH 7.38 ABG pCO2 47.4 H ABG pO2 76.3 L ABG HCO3 27.1 H ABG O2 Saturation 94.9 ABG Base Excess 1.2 FiO2 4L Sodium 140.9 Potassium 3.5 L Chloride 106 Carbon Dioxide 27 Anion Gap 8 BUN 13 Creatinine 0.68 Est GFR ( Amer) > 60 Glucose 205 H Calcium 8.8 06/04/19 06/04/19 06/05/19 22:19 22:19 00:50 Troponin I < 0.012 < 0.012 NT-Pro-B Natriuret Pep 125 Impressions: Chest X-Ray 06/04/19 22:07 IMPRESSION: Pulmonary vascular congestion. Head CT 06/04/19 22:07 IMPRESSION: 1. No acute intracranial findings. If there is clinical concern for acute stroke, consider MRI brain as a more sensitive evaluation. Assessment and Plan - Diagnosis (1) Acute metabolic encephalopathy Is this a current diagnosis for this admission?: Yes Plan: Resolved. Likely a combination from narcotic effect and hypercapnia from COPD exacerbation. (2) Acute respiratory failure with hypoxia and hypercapnia Is this a current diagnosis for this admission?: Yes Plan: Secondary to COPD exacerbation. Noncompliant to BiPAP. Currently saturating on nasal cannula. 06/06: Wean off supplemental O2. (3) COPD with acute exacerbation Is this a current diagnosis for this admission?: Yes Plan: Switch oral steroids to Solu-Medrol. Continue breathing treatments. 06/06: Improving. Decrease Solu-Medrol from q8h to q12. - Time Time Spent with patient: 25-34 minutes
--- NOTE | 2019-06-06 16:01 | XCELERA REPORT ---
[address] [address] Transthoracic Echocardiogram Report Name: ANGELA ESCAMILLA Age: 63 yrs Gender: Male : 1955 Patient Status: Inpatient Patient Location: [address] [place], [place] [address] Study Date: 06/06/2019 09:31 AM Height: 64 in Weight: 183 lb BSA: 1.9 m2 Procedure: A two-dimensional transthoracic echocardiogram with color flow and Doppler was performed. The study was technically difficult with many images being suboptimal in quality. Images were not obtained from all of the standard acoustic windows due to the limited scope of the study. Reason For Study: SOB, pulm congestion History: SOB, pulm congestion. Ordering Physician: TWILA MAN Performed By: Madelyn France Interpretation Summary The left ventricle is normal in size. There is normal left ventricular wall thickness. LV EF is 70% Left ventricular systolic function is normal. Doppler measurements suggest normal left ventricular diastolic function The left ventricular wall motion is normal. There is no thrombus. Cannot assess ASD,VSD,or PFO. The right ventricle is normal in size and function. The right atrium is normal in size The left atrium is borderline dilated. There is no evidence of mitral valve prolapse. There is no vegetation seen on the mitral valve. There is no mitral valve stenosis. There is no mitral regurgitation noted. There is no aortic valvular vegetation. There is aortic sclerosis without aortic stenosis. There is no aortic valve stenosis There is no LVOT obstruction. No aortic regurgitation is present. There is no tricuspid stenosis. There is a trace amount of tricuspid regurgitation Right ventricular systolic pressure is normal. RVSP is 21 mm of Hg , with RA mean of 10. There is no pulmonic valvular regurgitation. The aortic root is normal size. The inferior vena cava was not visualized There is no pericardial effusion. MMode/2D Measurements & Calculations RVDd: 3.2 cm LVIDd: 5.2 cm FS: 42.0 % Ao root diam: 3.1 cm IVSd: 0.86 cm LVIDs: 3.0 cm EDV(Teich): 130.9 ml Ao root area: 7.8 cm2 LVPWd: 0.97 cmESV(Teich): 35.9 ml EF(Teich): 72.6 % IVC Diam_phl: 1.9 cm Doppler Measurements & Calculations MV E max miranda: MV dec slope: Ao V2 max: LV V1 max P.2 cm/sec 177.3 cm/sec 8.8 mmHg MV A max miranda: 567.8 cm/sec2 Ao max PG: LV V1 max: 105.6 cm/sec MV dec time: 0.20 sec12.6 mmHg 148.1 cm/sec MV E/A: 1.1 PA V2 max: TR max miranda: 148.8 cm/sec 164.4 cm/sec PA max P.9 mmHg TR max P.9 mmHg Left Ventricle The left ventricle is normal in size. There is normal left ventricular wall thickness. LV EF is 70%. Left ventricular systolic function is normal. Doppler measurements suggest normal left ventricular diastolic function. The left ventricular wall motion is normal. There is no thrombus. Cannot assess ASD,VSD,or PFO. Right Ventricle The right ventricle is normal in size and function. Atria The right atrium is normal in size. The left atrium is borderline dilated. Mitral Valve There is no evidence of mitral valve prolapse. There is no vegetation seen on the mitral valve. There is no mitral valve stenosis. There is no mitral regurgitation noted. Aortic Valve There is no aortic valvular vegetation. There is aortic sclerosis without aortic stenosis. There is no aortic valve stenosis. There is no LVOT obstruction. No aortic regurgitation is present. Tricuspid Valve There is no tricuspid stenosis. There is a trace amount of tricuspid regurgitation. Right ventricular systolic pressure is normal. RVSP is 21 mm of Hg , with RA mean of 10. Pulmonic Valve There is no pulmonic valvular stenosis. There is no pulmonic valvular regurgitation. Great Vessels The aortic root is normal size. The inferior vena cava was not visualized. Effusions There is no pericardial effusion. : TWILA MAN, [place]
[2019-06-06] MEDS ORDERED: OXYCODONE HCL IR 5 MG TABLET PO ONE (18:30)
[2019-06-07] MEDS: IPRATROPIUM/ALBUTEROL 0.5-2.5 MG/3 ML AMPUL NEB SCH ×2 (00:22→08:12)
[2019-06-07] MEDS: OXYCODONE HCL IR 5 MG TABLET PO PRN ×2 (05:21→14:37)
[2019-06-07] MEDS: HEPARIN SOD (PORCINE) 5,000 UNIT/ML 1 ML VIAL SUBCUT SCH ×2 (05:21→14:38)
--- NOTE | 2019-06-07 08:28 | RADIOLOGY REPORT (SQ) ---
EXAM DESCRIPTION: CHEST SINGLE VIEW COMPLETED DATE/TIME: 06/07/2019 7:55 am REASON FOR STUDY: SOB COMPARISON: Chest films 06/04/2019, 04/26/2016, 09/16/2012 EXAM PARAMETERS: NUMBER OF VIEWS: One view. TECHNIQUE: Single frontal radiographic view of the chest acquired. RADIATION DOSE: NA LIMITATIONS: None. FINDINGS: LUNGS AND PLEURA: Minimal right basilar atelectasis. Lungs are otherwise well inflated an d clear. No pleural effusion. No pneumothorax. MEDIASTINUM AND HILAR STRUCTURES: No masses. Contour normal. HEART AND VASCULAR STRUCTURES: Heart normal in size. Normal vasculature. BONES: Lower cervical fusion hardware HARDWARE: None in the chest. OTHER: No other significant finding. IMPRESSION: Minimal right basilar atelectasis. TECHNICAL DOCUMENTATION: JOB ID: [id number] 2010 [employer]- All Rights Reserved Reading location - IP/workstation name: [email or web address]
[2019-06-07] MEDS: OXYCODONE HCL SR 10 MG TABLET PO SCH (09:15)
[2019-06-07] MEDS: FUROSEMIDE INJ/PF 20 MG/2 ML SDV IV SCH (09:16)
[2019-06-07] MEDS: FLUTICASONE NASAL SPRAY 50 MCG/SPRY 120 SPRAY/16 GM NASL SCH (09:16)
[2019-06-07] MEDS: PREGABALIN 100 MG CAPSULE PO SCH (09:16)
[2019-06-07] MEDS: METHYLPREDNISOLONE INJ 40 MG/1 ML SDV IV SCH (09:16)
--- NOTE | 2019-06-07 14:20 | PDOC DISCHARGE SUMMARY ---
Impression - Admit/DC Date/PCP Admission Date/Primary Care Provider: 06/05/19 02:06 KOMAL RAMON NP Discharge Date: 06/07/19 - Discharge Diagnosis (1) Acute respiratory failure with hypoxia and hypercapnia Is this a current diagnosis for this admission?: Yes (2) Acute metabolic encephalopathy Is this a current diagnosis for this admission?: Yes (3) Hypertension Is this a current diagnosis for this admission?: Yes (4) Opiate dependence, continuous Is this a current diagnosis for this admission?: Yes (5) Hyperlipidemia Is this a current diagnosis for this admission?: Yes (6) Chronic pain syndrome Is this a current diagnosis for this admission?: Yes (7) Cigarette nicotine dependence Is this a current diagnosis for this admission?: Yes - Additional Information Resuscitation Status: Full Code Discharge Diet: Cardiac Discharge Activity: Activity As Tolerated Referrals: KOMAL RAMON NP [Primary Care Provider] - 06/14/19 1:30 pm Prescriptions: Prednisone [Deltasone 20 mg Tablet] 40 mg PO DAILY 3 Days #6 tablet Home Medications: Amlodipine Besylate/Benazepril [Amlodipine-Benazepril 5-40 mg] 1 cap PO DAILY 04/29/16 Oxycodone HCl 10 mg PO Q8HP PRN 04/29/16 Pregabalin [Lyrica] 300 mg PO Q12 04/29/16 Albuterol Sulfate [Proair HFA] 2 puff IH Q6HP PRN 06/05/19 Oxycodone HCl [Oxycontin Sr 10 mg Tablet] 10 mg PO Q12 06/05/19 Rosuvastatin Calcium 40 mg PO QHS 06/05/19 Umeclidinium Brm/Vilanterol Tr [Anoro Ellipta 62.5-25 Mcg INH] 1 each IH DAILY 06/05/19 Fluticasone Propionate [Flonase Nasal [place] 50 Mcg/[place] 16 gm] 2 spray NASL Q12 spray.pump 06/07/19 Prednisone [Deltasone 20 mg Tablet] 40 mg PO DAILY 3 Days #6 tablet 06/07/19 History of Present Illiness History of Present Illness: ANGELA ESCAMILLA is a 63 year old male with a past medical history of COPD, bronchitis, opiate dependent chronic pain. He presents with shortness of breath and confusion. In the emergency department he is obtunded with pinpoint pupils, hypoxic and hypercapnic respiratory failure and a nonproductive cough. His is at bedside who verifies he is on OxyContin twice a day but is not thought to have intentional overdose. In the emergency department he received Narcan 2 mg resulting in agitation and a respiratory rate in the 30s. He is referred to the hospitalist for admission. At this time patient is reevaluated by myself he is found sedated with pinpoint pupils requiring a repeat dose of Narcan 0.8 mg resulting in improved blood pressure and respiratory rate. Per intake patient is recently grieving after the of his son earlier in the day. Hospital Course Hospital Course: Initially the patient required 3 doses of Narcan to try and reverse the effects of his opiate therapy. This may have contributed to hypercapnia. He did respond to the Narcan as well as utilizing BiPAP. He was initially given antibiotic therapy but the hospital service felt was not an acute infectious process at work but rather an exacerbation of his COPD. He had pulmonary toilet with nebulizers and systemic steroids were also utilized. He did receive a short course of furosemide therapy as well. As his PCO2 improved so did his metabolic encephalopathy as it was most likely related to the combination of hypercapnia and his pain medication. He in fact has weaned from all oxygen therapy. He will be discharged to home and return to his inhaler regimen with the addition of a very short course of prednisone. His blood pressure was well controlled and he will return to his home medication regimen including his antihypertensives and statin therapy. He will resume his previous course of gabapentin and chronic narcotic use per a pain management service. A nicotine patch was available for his tobacco dependence during his admission and hopefully he will avoid resumption of his cigarettes. Physical Exam Vital Signs: Temp Pulse Resp BP Pulse Ox 97.5 F 79 18 126/70 H 95 06/07/19 07:38 06/07/19 08:12 06/07/19 08:12 06/07/19 07:38 06/07/19 08:12 Intake & Output 06/06/19 06/07/19 06/08/19 06:59 06:59 06:59 Intake Total 360 632 120 Output Total 500 Balance -140 632 120 Weight 79.4 kg 80.6 kg General appearance: PRESENT: no acute distress, cooperative, well-developed, well-nourished Head exam: PRESENT: atraumatic, normocephalic Eye exam: PRESENT: conjunctiva pink. ABSENT: scleral icterus Ear exam: PRESENT: normal external ear exam. ABSENT: bleeding, drainage Mouth exam: PRESENT: moist, tongue midline Respiratory exam: PRESENT: clear to auscultation alcides, symmetrical, unlabored. ABSENT: rales, rhonchi, tachypnea, wheezes Cardiovascular exam: PRESENT: RRR, +S1, +S2 GI/Abdominal exam: PRESENT: normal bowel sounds, soft. ABSENT: distended, guarding, tenderness Rectal exam: PRESENT: deferred Gentrourinary exam: ABSENT: indwelling catheter Extremities exam: PRESENT: full ROM. ABSENT: joint swelling, pedal edema Musculoskeletal exam: PRESENT: ambulatory, normal inspection Neurological exam: PRESENT: alert, awake, oriented to person, oriented to place, oriented to time, oriented to situation, CN II-XII grossly intact. ABSENT: motor sensory deficit Psychiatric exam: PRESENT: appropriate affect, normal mood. ABSENT: agitated, anxious Focused psych exam: ABSENT: delusional, restlessness Skin exam: PRESENT: dry, normal color, warm. ABSENT: rash Results Laboratory Results: WBC 13.7 10^3/uL (4.0-10.5) H 06/06/19 04:33 RBC 4.25 10^6/uL (4.35-5.55) L 06/06/19 04:33 Hgb 12.8 g/dL (13.5-17.0) L 06/06/19 04:33 Hct 38.1 % (37.9-51.0) 06/06/19 04:33 MCV 90 fl (80-97) 06/06/19 04:33 MCH 30.1 pg (27.0-33.4) 06/06/19 04:33 MCHC 33.6 g/dL (32.0-36.0) 06/06/19 04:33 RDW 13.9 % (11.5-14.0) 06/06/19 04:33 Plt Count 293 10^3/uL (150-450) 06/06/19 04:33 Lymph % (Auto) 12.4 % (13-45) L 06/04/19 22:19 [place] % (Auto) 6.9 % (3-13) 06/04/19 22:19 Eos % (Auto) 1.7 % (0-6) 06/04/19 22:19 Baso % (Auto) 0.6 % (0-2) 06/04/19 22:19 Absolute Neuts (auto) 10.1 10^3/uL (1.7-8.2) H 06/04/19 22:19 Absolute Lymphs (auto) 1.6 10^3/uL (0.5-4.7) 06/04/19 22:19 Absolute Monos (auto) 0.9 10^3/uL (0.1-1.4) 06/04/19 22:19 Absolute Eos (auto) 0.2 10^3/uL (0.0-0.6) 06/04/19 22: Absolute Basos (auto) 0.1 10^3/uL (0.0-0.2) 06/04/19 22:19 Seg Neutrophils % 78.4 % (42-78) H 06/04/19 22:19 PT 13.4 SEC (11.4-15.4) 06/04/19 22:19 INR 1.02 06/04/19 22:19 Carbonic Acid 1.43 mmol/L (1.05-1.35) H 06/05/19 13:15 HCO3/H2CO3 Ratio 18:1 06/05/19 13:15 ABG pH 7.38 (7.35-7.45) 06/05/19 13:15 ABG pCO2 47.4 mmHg (35-45) H 06/05/19 13:15 ABG pO2 76.3 mmHg (80-100) L 06/05/19 13:15 ABG HCO3 27.1 mmol/L (20-24) H 06/05/19 13:15 ABG Total CO2 28.6 mmol/L (23-27) H 06/05/19 13:15 ABG O2 Saturation 94.9 % (94-98) 06/05/19 13:15 ABG Base Excess 1.2 mmol/L 06/05/19 13:15 FiO2 4L 06/05/19 13:15 Sodium 140.9 mmol/L (137-145) 06/06/19 04:33 Potassium 3.5 mmol/L (3.6-5.0) L 06/06/19 04:33 Chloride 106 mmol/L (98-107) 06/06/19 04:33 Carbon Dioxide 27 mmol/L (22-30) 06/06/19 04:33 Anion Gap 8 (5-19) 06/06/19 04:33 BUN 13 mg/dL (7-20) 06/06/19 04:33 Creatinine 0.68 mg/dL (0.52-1.25) 06/06/19 04:33 Est GFR ( Amer) > 60 (>60) 06/06/19 04:33 Est GFR (MDRD) Non-Af > 60 (>60) 06/06/19 04:33 Glucose 205 mg/dL (75-110) H 06/06/19 04:33 POC Glucose 105 mg/dL (70-110) 06/04/19 23:15 Lactic Acid 0.6 mmol/L (0.7-2.1) L 06/05/19 06:01 Calcium 8.8 mg/dL (8.4-10.2) 06/06/19 04:33 Total Bilirubin 0.4 mg/dL (0.2-1.3) 06/04/19 22:19 Direct Bilirubin 0.1 mg/dL (0.0-0.4) 06/04/19 22:19 Neonat Total Bilirubin Not Reportable 06/04/19 22:19 Neonat Direct Bilirubin Not Reportable 06/04/19 22:19 Neonat Indirect Bili Not Reportable 06/04/19 22:19 AST 27 U/L (17-59) 06/04/19 22:19 ALT 17 U/L (<50) 06/04/19 22:19 Alkaline Phosphatase 95 U/L (38-126) 06/04/19 22:19 Troponin I < 0.012 ng/mL 06/05/19 00:50 NT-Pro-B Natriuret Pep 125 pg/mL (<125) 06/04/19 22:19 Total Protein 6.5 g/dL (6.3-8.2) 06/04/19 22:19 Albumin 3.5 g/dL (3.5-5.0) 06/04/19 22:19 Urine Color YELLOW 06/04/19 23:35 Urine Appearance SLIGHTLY-CLOUDY 06/04/19 23:35 Urine pH 5.0 (5.0-9.0) 06/04/19 23:35 Ur Specific [place] 1.015 06/04/19 23:35 Urine Protein NEGATIVE mg/dL (NEGATIVE) 06/04/19 23:35 Urine Glucose (UA) NEGATIVE mg/dL (NEGATIVE) 06/04/19 23:35 Urine Ketones NEGATIVE mg/dL (NEGATIVE) 06/04/19 23:35 Urine Blood NEGATIVE (NEGATIVE) 06/04/19 23:35 Urine Nitrite NEGATIVE (NEGATIVE) 06/04/19 23:35 Urine Bilirubin NEGATIVE (NEGATIVE) 06/04/19 23:35 Urine Urobilinogen NEGATIVE mg/dL (<2.0) 06/04/19 23:35 Ur Leukocyte Esterase NEGATIVE (NEGATIVE) 06/04/19 23:35 Urine WBC (Auto) 2 /HPF 06/04/19 23:35 Urine RBC (Auto) 3 /HPF 06/04/19 23:35 U Hyaline Cast (Auto) 22 /LPF 06/04/19 23:35 Urine Bacteria (Auto) TRACE /HPF 06/04/19 23:35 Urine Mucus (Auto) FEW /LPF 06/04/19 23:35 Urine Ascorbic Acid NEGATIVE (NEGATIVE) 06/04/19 23:35 Urine Opiates Screen UNCONFIRMED POSITIVE 06/04/19 23:35 Urine Methadone Screen NEGATIVE 06/04/19 23:35 Ur Barbiturates Screen NEGATIVE 06/04/19 23:35 Ur Phencyclidine Scrn NEGATIVE 06/04/19 23:35 Ur Amphetamines Screen NEGATIVE 06/04/19 23:35 U Benzodiazepines Scrn UNCONFIRMED POSITIVE 06/04/19 23:35 Urine Cocaine Screen NEGATIVE 06/04/19 23:35 U Marijuana (THC) Screen NEGATIVE 06/04/19 23:35 Serum Alcohol < 10 mg/dL (NONE DETECTED) 06/04/19 22:19 Influenza A (Rapid) NEGATIVE (NEGATIVE) 06/04/19 23:50 Influenza B (Rapid) NEGATIVE (NEGATIVE) 06/04/19 23:50 06/04/19 06/04/19 06/05/19 22:19 22:19 00:50 Troponin I < 0.012 < 0.012 NT-Pro-B Natriuret Pep 125 Impressions: Chest X-Ray 06/04/19 22:07 IMPRESSION: Pulmonary vascular congestion. Head CT 06/04/19 22:07 IMPRESSION: 1. No acute intracranial findings. If there is clinical concern for acute stroke, consider MRI brain as a more sensitive evaluation. Chest X-Ray 06/07/19 07:00 IMPRESSION: Minimal right basilar atelectasis. Plan Health Concerns: Resumption of cigarette smoking and abuse of current pain medication regimen Plan of Treatment: Resume outpatient inhaler regimen. Complete abbreviated course of steroids. No antibiotics required at discharge. Resume previous medication regimen with regard to antihypertensives and statin therapy. Continue with current pain management service. Goals: Tobacco cessation. Better pain control with less narcotic therapy. Time Spent: Greater than 30 Minutes Stroke Is this a Stroke Patient?: No Acute Heart Failure - Is this a Heart Failure Patient?: No
[2019-06-07 14:27] VITALS: BP 103/51
== END 2019-06-07 15:05 | disposition home or self-care (01) | DRG 91 ==
LOC: ER 21:54 → EH 06-05 02:06 → 3N 06-05 03:55
PROVIDERS: ADMIT Internal Medicine; ATTEND Internal Medicine
PROC: 5A09357 Assistance with Respiratory Ventilation, Less than 24 Consecutive Hours, Continuous Positive Airway Pressure (ICD-10-PCS; principal; 2019-06-05)
DX: G92 Toxic encephalopathy (principal); J96.22 Acute and chronic respiratory failure with hypercapnia; J96.21 Acute and chronic respiratory failure with hypoxia; J44.1 Chronic obstructive pulmonary disease with (acute) exacerbation; I10 Essential (primary) hypertension; G89.4 Chronic pain syndrome; E78.5 Hyperlipidemia, unspecified; E10.9 Type 1 diabetes mellitus without complications; J40 Bronchitis, not specified as acute or chronic; T40.605A Adverse effect of unspecified narcotics, initial encounter; F17.210 Nicotine dependence, cigarettes, uncomplicated; Z79.891 Long term (current) use of opiate analgesic; Z91.19 Patient's noncompliance with other medical treatment and regimen; Y92.019 Unspecified place in single-family (private) house as the place of occurrence of the external cause; Z82.49 Family history of ischemic heart disease and other diseases of the circulatory system
CPT/HCPCS: 36415; 36600; 70450; 71045; 80048; 80053; 80307; 81001; 82803; 82962; 83605; 83880; 84484; 85025; 85027; 85610; 87040; 87804; 93005; 93010; 93306; 94660; 94667; 94668; 94799; 96361; 96365; 96368; 96372; 96375; 99285; J1644; J1940; J1956; J2060; J2310; J2543; J2920; J3370; J3490; J7030; J7512; J7620

== ENCOUNTER → 2019-06-14 | Outpatient (CLI) | payer BC ==
--- NOTE | 2019-06-14 16:23 | RADIOLOGY REPORT (SQ) ---
EXAM DESCRIPTION: CHEST PA/LATERAL COMPLETED DATE/TIME: 06/14/2019 3:21 pm REASON FOR STUDY: PRE-OP COMPARISON: 06/07/2019. EXAM PARAMETERS: NUMBER OF VIEWS: two views TECHNIQUE: Digital Frontal and Lateral radiographic views of the chest acquired. RADIATION DOSE: NA LIMITATIONS: none FINDINGS: LUNGS AND PLEURA: Linear densities in lung bases. No lobar infiltrates, masses or pneumot horax. No pleural effusion. MEDIASTINUM AND HILAR STRUCTURES: No masses or contour abnormalities. HEART AND VASCULAR STRUCTURES: Heart normal size. No evidence for failure. BONES: No acute findings. HARDWARE: Hardware in the cervical spine. OTHER: No other significant finding. IMPRESSION: LINEAR ATELECTASIS VERSUS SCARRING IN THE LUNG BASES. TECHNICAL DOCUMENTATION: JOB ID: [id number] 2011 [employer]- All Rights Reserved Reading location - IP/workstation name: [email or web address]
[2019-06-14 16:51] LABS: ABSOLUTE EOSINOPHILS # (AUTO) 0.3 10^3/uL (0.0-0.6); ABSOLUTE LYMPHOCYTES (AUTO) 2.4 10^3/uL (0.5-4.7); ABSOLUTE MONOCYTES (AUTO) 0.6 10^3/uL (0.1-1.4); ABSOLUTE NEUT (AUTO) 5.1 10^3/uL (1.7-8.2); BASOPHILS % (AUTO) 0.2 % (0-2); EOSINOPHILS % (AUTO) 3.3 % (0-6); HEMATOCRIT 39.4 % (37.9-51.0); HEMOGLOBIN 13.9 g/dL (13.5-17.0); LYMPHOCYTES % (AUTO) 29.1 % (13-45); MEAN CORPUSCULAR HGB CONC 35.2 g/dL (32.0-36.0); MEAN CORPUSCULAR VOLUME 88 fl (80-97); MONOCYTES % (AUTO) 6.6 % (3-13); PLATELET COUNT 316 10^3/uL (150-450); RED BLOOD COUNT 4.47 10^6/uL (4.35-5.55); RED CELL DISTRIBUTION WIDTH 14.1 % (11.5-14.0); SEGMENTED NEUTROPHILS % (AUTO) 60.8 % (42-78); TOTAL CELLS COUNTED % (AUTO) 100 %; WHITE BLOOD COUNT 8.4 10^3/uL (4.0-10.5)
--- NOTE | 2019-06-14 17:06 | EKG REPORT ---
SEVERITY:- OTHERWISE NORMAL ECG - SINUS RHYTHM LEFT AXIS DEVIATION LOW VOLTAGE IN FRONTAL LEADS : Confirmed by: Scarlet Moralez MD 14-Jun-2019 17:05:32
[2019-06-14 17:11] LABS: ANION GAP 7 (5-19); BLOOD UREA NITROGEN 14 mg/dL (7-20); CALCIUM 8.5 mg/dL (8.4-10.2); CARBON DIOXIDE 28 mmol/L (22-30); CHLORIDE 101 mmol/L (98-107); GLUCOSE 118 mg/dL (75-110); POTASSIUM 3.5 mmol/L (3.6-5.0)
== END ==
LOC: OD 14:54
PROVIDERS: ATTEND Orthopaedic Surgery
DX: Z01.812 Encounter for preprocedural laboratory examination (principal); Z01.811 Encounter for preprocedural respiratory examination; Z01.810 Encounter for preprocedural cardiovascular examination; S83.241A Other tear of medial meniscus, current injury, right knee, initial encounter; X58.XXXA Exposure to other specified factors, initial encounter; Y93.9 Activity, unspecified; Y92.9 Unspecified place or not applicable; I10 Essential (primary) hypertension; F17.210 Nicotine dependence, cigarettes, uncomplicated
CPT/HCPCS: 36415; 71046; 80048; 85025; 93005; 93010